=== PATIENT | female | born 1955 | race Caucasian/White ===

== ENCOUNTER → 2017-07-27 07:51 | Outpatient (CLI) | payer OTHER, SELFPAY ==
--- NOTE | 2017-07-27 07:53 | HPBI_ITS ---
MAMMOGRAPHY - BILATERAL SCREENING REASON FOR EXAM: Female, 62 years old. Routine annual screening examination. PERTINENT HISTORY: Grandmother with breast cancer. TECHNIQUE: Digital bilateral breast jeronimo (3D mammographic acquisition) in the CC and MLO projections. 2-D mediolateral oblique (MLO) and craniocaudad (CC) views of both breasts were obtained. CAD: Full Field Digital Mammography with Computer Added Detection was performed. COMPARISON: Comparison is made with prior study dated July 14, 2016. FINDINGS: Breast Composition: The breasts are heterogeneously dense, which may obscure small masses. There are no dominant masses or suspicious calcifications. No other significant abnormalities are identified. There has been no significant change since the prior study. HPBI/SCREENING MAMM (CAD), BILAT IMPRESSION: Stable bilateral screening mammogram. Yearly follow-up mammogram recommended. (A) ASSESSMENT CATEGORY: BIRADS Category 1: Negative. A letter regarding these results will be sent to the patient by the facility within 30 days. Approximately 10% of breast cancers are not detected by mammography. A normal mammogram should not delay biopsy of a clinically suspicious abnormality. [id number] Electronically Signed: Woody Davenport MD at 12:26 EST Tel [phone], Service support ,
== END ==
PROVIDERS: Family Provider Family Medicine; PCP Family Medicine; Visit Provider Family Medicine
DX: Z12.31 Encounter for screening mammogram for malignant neoplasm of breast (principal)
CPT/HCPCS: 77063; 77067

== ENCOUNTER → 2018-02-15 11:10 | Outpatient (CLI) | payer OTHER, SELFPAY ==
[2018-02-15 14:10] LABS: Absolute Lymphocyte Count 1.19 X10^3/ul (0.83-4.51); Absolute Neutrophil Count 3.7 X10^3/uL (2.0-7.7); Basophil# 0.02 X10^3/uL; Basophil% 0.4 % (0-1); Eosinophil# 0.17 X10^3/uL; Eosinophils% 3.1 % (0-5); Hematocrit 37.6 % (37-47); Hemoglobin 11.7 g/dl (12.0-15.0); Lymphocyte # 1.19 X10^3/ul (4.0); Lymphocyte % 21.8 % (19-41); Mean Corp Hgb Conc 31.1 g/gl (32-36); Mean Corpuscular Hgb 25.9 pg (27.0-32.0); Mean Corpuscular Volume 83.4 fL (81-99); Mean Platelet Vol. 9.9 fl (6.2-12.0); Monocyte# 0.42 X10^3/uL; Monocyte% 7.7 % (0-10); Neutrophil # 3.65 X10^3/uL (2.7-7.7); Neutrophil % 66.6 % (47-70); Platelet Count 276 K/mm3 (150-450); RBC Distribution Width CV 14.3 % (11.6-14.6); Red Blood Count 4.51 M/mm3 (4.2-5.4); White Blood Count 5.5 K/mm3 (4.4-11.0)
[2018-02-15 14:15] LABS: POSITIVE COUNT NO; POSITIVE DIFFERENTIAL NO; POSITIVE MORPHOLOGY NO
[2018-02-15 14:38] LABS: AST(SGOT) 22 U/L (15-37); Alanine Aminotransfer ALT/SGPT 24 U/L (13-56); Anion Gap 10 (5-15); BUN 19 mg/dL (7-18); Calcium,Total 9.1 mg/dL (8.5-10.1); Chloride 103 mmol/L (98-107); Cholesterol 152 mg/dL (200); Creatinine, Serum 0.86 mg/dL (0.55-1.02); EST Glomerular Filtration Rate 70 mL/min (>60); Est Glom Filt Rate - Afr Amer 85 mL/min (>60); Glucose 82 mg/dL (74-106); High Density Lipoprotein 51 mg/dL; Potassium 4.1 mmol/L (3.5-5.1); Sodium Level 140 mmol/L (136-145); Triglycerides 97 mg/dL; Very Low Density Lipoprotein 19 mg/dL (5-40)
== END ==
PROVIDERS: Family Provider Family Medicine; PCP Family Medicine; Visit Provider Family Medicine
DX: I10 Essential (primary) hypertension (principal); E78.5 Hyperlipidemia, unspecified; D50.0 Iron deficiency anemia secondary to blood loss (chronic)
CPT/HCPCS: 36415; 80048; 80061; 84450; 84460; 85025

== ENCOUNTER → 2018-08-23 14:15 | Outpatient (CLI) | payer OTHER, SELFPAY ==
[2018-05-03 14:40] VITALS: BMI 45.3
[2018-08-23 16:02] LABS: Anion Gap 10 (5-15); BUN 14 mg/dL (7-18); BUN/Creat Ratio 17.5 RATIO (10-20); Calcium,Total 9.2 mg/dL (8.5-10.1); Chloride 100 mmol/L (98-107); EST Glomerular Filtration Rate 77 mL/min (>60); Est Glom Filt Rate - Afr Amer 93 mL/min (>60); Glucose 77 mg/dL (74-106); Potassium 4.2 mmol/L (3.5-5.1); Sodium Level 138 mmol/L (136-145)
== END ==
PROVIDERS: Family Provider Family Medicine; PCP Family Medicine; Referring Provider Family Medicine; Visit Provider Family Medicine
DX: I10 Essential (primary) hypertension (principal)
CPT/HCPCS: 36415; 80048

== ENCOUNTER → 2018-08-25 08:28 | Outpatient (CLI) | payer OTHER, SELFPAY ==
[2018-05-03 14:40] VITALS: BMI 45.3
--- NOTE | 2018-08-25 08:31 | BI_ITS ---
MAMMOGRAPHY - BILATERAL SCREENING REASON FOR EXAM: Female, 63 years old. Routine annual screening examination. PERTINENT HISTORY: Grandmother with breast cancer. TECHNIQUE: Digital bilateral breast jeronimo (3D mammographic acquisition) in the CC and MLO projections. 2-D mediolateral oblique (MLO) and craniocaudad (CC) views of both breasts were obtained. CAD: Full Field Digital Mammography with Computer Added Detection was performed. COMPARISON: Comparison is made with prior study dated July 27, 2017 and July 14, 2016. FINDINGS: Breast Composition: The breasts are heterogeneously dense, which may obscure small masses. There are no dominant masses or suspicious calcifications. Stable benign-appearing bilateral axillary lymph nodes. No other significant abnormalities are identified. There has been no significant change since the prior study. BI/SCREENING MAMM (CAD), BILAT IMPRESSION: Stable bilateral screening mammogram. Yearly follow-up mammogram recommended. (A) ASSESSMENT CATEGORY: BIRADS Category 2: Benign. A letter regarding these results will be sent to the patient by the facility within 30 days. Approximately 10% of breast cancers are not detected by mammography. A normal mammogram should not delay biopsy of a clinically suspicious abnormality. [id number] Electronically Signed: Woody Davenport, at 14:45 EST , Service support ,
== END ==
PROVIDERS: Family Provider Family Medicine; PCP Family Medicine; Referring Provider Family Medicine; Visit Provider Family Medicine
DX: Z12.31 Encounter for screening mammogram for malignant neoplasm of breast (principal)
CPT/HCPCS: 77063; 77067

== ENCOUNTER → 2019-03-09 10:15 | Outpatient (CLI) | payer MEDICARE, OTHER, SELFPAY ==
[2018-05-03 14:40] VITALS: BMI 45.3
[2019-03-09 13:42] LABS: AST(SGOT) 19 U/L (15-37); Alanine Aminotransfer ALT/SGPT 23 U/L (13-56); Anion Gap 6 (5-15); BUN 17 mg/dL (7-18); BUN/Creat Ratio 18.9 RATIO (10-20); Calcium,Total 9.7 mg/dL (8.5-10.1); Chloride 102 mmol/L (98-107); Cholesterol 145 mg/dL (200); EST Glomerular Filtration Rate 67 mL/min (>60); Est Glom Filt Rate - Afr Amer 81 mL/min (>60); Glucose 89 mg/dL (74-106); High Density Lipoprotein 52 mg/dL; Potassium 4.1 mmol/L (3.5-5.1); Sodium Level 136 mmol/L (136-145); Triglycerides 101 mg/dL; Very Low Density Lipoprotein 20 mg/dL (5-40)
== END ==
PROVIDERS: Family Provider Family Medicine; PCP Family Medicine; Referring Provider Family Medicine; Visit Provider Family Medicine
DX: E78.5 Hyperlipidemia, unspecified (principal); I10 Essential (primary) hypertension
CPT/HCPCS: 36415; 80048; 80061; 84450; 84460

== ENCOUNTER → 2019-08-29 08:31 | Outpatient (CLI) | payer MEDICARE, OTHER, SELFPAY ==
[2019-05-23 13:07] VITALS: BMI 45.9
--- NOTE | 2019-08-29 08:35 | BI_ITS ---
MAMMOGRAPHY - BILATERAL SCREENING REASON FOR EXAM: Female, 64 years old. Routine annual screening examination. PERTINENT HISTORY: Grandmother with breast cancer. TECHNIQUE: Digital bilateral breast mathew (3D mammographic acquisition) in the CC and MLO projections. 2-D mediolateral oblique (MLO) and craniocaudad (CC) views of both breasts were obtained. CAD: Full Field Digital Mammography with Computer Added Detection was performed. COMPARISON: Comparison is made with prior study of August 25, 2018 and July 27, 2017. FINDINGS: Breast Composition: The breasts are heterogeneously dense, which may obscure small masses. There are no dominant masses or suspicious calcifications. Stable small bilateral benign-appearing axillary lymph nodes. No other significant abnormalities are identified. There has been no significant change since the prior study. BI/Bilat Brst Screen Mathew Add-On IMPRESSION: Stable bilateral screening mammogram. Yearly follow-up mammogram recommended. (A) ASSESSMENT CATEGORY: BIRADS Category 2: Benign. A letter regarding these results will be sent to the patient by the facility within 30 days. Approximately 10% of breast cancers are not detected by mammography. A normal mammogram should not delay biopsy of a clinically suspicious abnormality. [id number] Electronically Signed: Woody Davenport, at 12:48 EDT , Service support ,
== END ==
PROVIDERS: PCP Family Medicine; Referring Provider Family Medicine; Visit Provider Family Medicine
DX: Z12.31 Encounter for screening mammogram for malignant neoplasm of breast (principal); Z80.3 Family history of malignant neoplasm of breast
CPT/HCPCS: 77063; 77067

== ENCOUNTER → 2019-09-05 11:07 | Outpatient (CLI) | payer MEDICARE, OTHER, SELFPAY ==
[2019-05-23 13:07] VITALS: BMI 45.9
[2019-09-05 12:38] LABS: Anion Gap 6 (5-15); BUN 19 mg/dL (7-18); BUN/Creat Ratio 21.4 RATIO (10-20); Calcium,Total 9.5 mg/dL (8.5-10.1); Chloride 103 mmol/L (98-107); Cholesterol 163 mg/dL (200); Creatinine, Serum 0.89 mg/dL (0.55-1.02); EST Glomerular Filtration Rate 68 mL/min (>60); Est Glom Filt Rate - Afr Amer 82 mL/min (>60); Glucose 93 mg/dL (74-106); High Density Lipoprotein 50 mg/dL; Potassium 4.4 mmol/L (3.5-5.1); Sodium Level 138 mmol/L (136-145); Triglycerides 126 mg/dL; Very Low Density Lipoprotein 25 mg/dL (5-40)
[2019-09-05 14:34] LABS: Vitamin D,25 Hydroxy 36.5 ng/mL
== END ==
PROVIDERS: PCP Family Medicine; Referring Provider Family Medicine; Visit Provider Family Medicine
DX: I10 Essential (primary) hypertension (principal); E55.9 Vitamin D deficiency, unspecified
CPT/HCPCS: 36415; 80048; 80061; 82306

== ENCOUNTER → 2020-06-23 12:40 | Outpatient (CLI) | payer MEDICARE, OTHER, SELFPAY ==
[2020-05-28 14:55] VITALS: BMI 45.2
[2020-06-23 15:53] LABS: AST(SGOT) 19 U/L (15-37); Alanine Aminotransfer ALT/SGPT 30 U/L (13-56); Albumin, Serum 3.8 g/dL (3.2-5.0); Alkaline Phosphatase 132 U/L (45-117); Anion Gap 7 (5-15); BUN 23 mg/dL (7-18); BUN/Creat Ratio 21.9 RATIO (10-20); Bilirubin, Direct 0.19 mg/dL (0.00-0.30); Calcium,Total 9.4 mg/dL (8.5-10.1); Chloride 106 mmol/L (98-107); Creatinine, Serum 1.05 mg/dL (0.55-1.02); EST Glomerular Filtration Rate 56 mL/min (>60); Est Glom Filt Rate - Afr Amer 67 mL/min (>60); Globulin 4.1 g/dL (2.2-4.2); Glucose 117 mg/dL (74-106); Potassium 3.8 mmol/L (3.5-5.1); Protein, Total 7.9 g/dL (6.4-8.2); Sodium Level 141 mmol/L (136-145)
[2020-06-25 07:46] LABS: SARS-COV-2 TOTAL ABS Nonreactive (Nonreactive)
== END ==
PROVIDERS: PCP Family Medicine; Referring Provider Family Medicine; Visit Provider Family Medicine
DX: Z01.83 Encounter for blood typing (principal); I10 Essential (primary) hypertension
CPT/HCPCS: 36415; 80048; 80076; 86769; 86900; 86901

== ENCOUNTER → 2020-09-17 12:00 | Outpatient (CLI) | payer MEDICARE, OTHER, SELFPAY ==
[2020-05-28 14:55] VITALS: BMI 45.2
[2020-09-17 16:39] LABS: Anion Gap 6 (5-15); BUN 18 mg/dL (7-18); BUN/Creat Ratio 20.6 RATIO (10-20); Chloride 103 mmol/L (98-107); Cholesterol 167 mg/dL (200); Creatinine, Serum 0.87 mg/dL (0.55-1.02); EST Glomerular Filtration Rate 69 mL/min (>60); Est Glom Filt Rate - Afr Amer 83 mL/min (>60); Glucose 78 mg/dL (74-106); High Density Lipoprotein 54 mg/dL; Potassium 4.2 mmol/L (3.5-5.1); Sodium Level 137 mmol/L (136-145); Triglycerides 122 mg/dL; Very Low Density Lipoprotein 24 mg/dL (5-40)
== END ==
PROVIDERS: PCP Family Medicine; Referring Provider Family Medicine; Visit Provider Family Medicine
DX: E78.5 Hyperlipidemia, unspecified (principal); I10 Essential (primary) hypertension
CPT/HCPCS: 36415; 80048; 80061

== ENCOUNTER → 2020-09-24 09:45 | Outpatient (CLI) | payer MEDICARE, OTHER, SELFPAY ==
[2020-05-28 14:55] VITALS: BMI 45.2
--- NOTE | 2020-09-24 09:53 | BD_ITS ---
STUDY: DUAL ENERGY X-RAY ABSORPTIOMETRY / DXA REASON FOR EXAM: Female, 65 years old. V76.12ScreeningBONE DENSITY REASON FOR EXAM TECHNIQUE: Bone Mineral Density (BMD) measurements of lumbar spine and bilateral hips were obtained. COMPARISON: Comparison is made with prior examination dated 07/14/2016. FINDINGS: Lumbar Spine (L1-L4): g/cm2 (1.169) / T-score (0.0) / Z-score (1.6) Findings are suggestive of normal bone density with a low fracture risk. Left Femur Total: g/cm2 (1.054) / T-score (0.4) / Z-score (1.6) Left Femoral Neck: g/cm2 (1.002) / T-score (-0.3) / Z-score (1.3) Right Femur Total: g/cm2 (1.018) / T-score (0.1) / Z-score (1.3) Right Femoral Neck: g/cm2 (0.962) / T-score (-0.5) / Z-score (1.0) The T-Scores on the most recent prior examination were: Lumbar Spine (L1-L4): There has been worsening of bone density since the previous examination. Left Femur Total: which represents a worsening of 5.6%. Right Femur Total: which represents a worsening of 3.2%. BD/Dexa Bone Density Study IMPRESSION: The patient is considered normal as outlined below according to World Brandon Organization (WHO) criteria with a low fracture risk. There has been worsening of bone density since the previous examination. Reference Information: The T-score is the number of standard deviations above or below the standard which is normal for young adults at their peak bone mineral density. The World Health Organization (WHO) interprets the T-scores as follows: Above -1 Normal bone density Between -1 and -2.5 Osteopenia Equal to / or below -2.5 Osteoporosis As a practical clinical guideline, osteopenia may be graded as follows: Mild -1 through -1.5 Moderate -1.6 through -2.0 Severe -2.1 through -2.4 The Z-score is the number of standard deviations above or below age-matched controls. A Z-score of less than -1.5 would be considered abnormal. References: 1. NIH Osteoporosis and Related Bone Diseases www osteo.org 2. International Society for Clinical Densitometry www iscd.org 3. National Osteoporosis Foundation www nof.org Electronically Signed: Woody Davenport MD at 9:58 EDT , Service support ,
--- NOTE | 2020-09-24 10:15 | RAD_ITS ---
STUDY: X-RAY - LUMBOSACRAL SPINE REASON FOR EXAM: Female, 65 years old. pain TECHNIQUE: 8 view(s) of the lumbosacral spine were obtained including flexion and extension. COMPARISON: None FINDINGS: Normal lumbar lordosis. There is no substantial scoliosis. There are 4 nonrib bearing vertebral bodies with a transitional L5. There is a moderate superior endplate compression deformity of L1 which looks to be an old compression deformity. Normal vertebral body height at other levels. There is generalized moderate degenerative disc narrowing and spondylitic endplate changes which are greatest at L2-3. Rudimentary disc at L5/transitional S1. There is no change in alignment on flexion and extension. Facet arthrosis appears to be most prominent at L3-4 and L4-5. Normal visualized soft tissue structures. RAD/L/S Spine w Bend Min 6 Vw IMPRESSION: Normal alignment of the lumbar spine which is stable on flexion and extension. Old moderate superior endplate compression deformity of L1 noting for rib bearing lumbar levels with a transitional L5 with a rudimentary disc at L5-S1. Generalized moderate degenerative disc narrowing and spondylitic endplate changes most advanced at L2-3. Electronically Signed: Opal Arenas MD at 23:16 EDT , Service support ,
== END ==
PROVIDERS: PCP Family Medicine; Referring Provider Family Medicine; Visit Provider Family Medicine
DX: M54.5 Low back pain (principal); N95.9 Unspecified menopausal and perimenopausal disorder
CPT/HCPCS: 72114; 77080

== ENCOUNTER → 2020-10-09 06:27 | Outpatient (CLI) | payer MEDICARE, OTHER, SELFPAY ==
[2020-09-30 09:52] VITALS: BMI 45.6
--- NOTE | 2020-10-09 06:29 | MRI_ITS ---
STUDY: MRI LUMBAR SPINE WITHOUT CONTRAST REASON FOR EXAM: Female, 65 years old. Pain AFTER FALL 06/13/20 TECHNIQUE: Standardized fat and water weighted pulse sequences were obtained in the sagittal and axial planes. COMPARISON: Lumbar spine radiographs 09/24/2020. FINDINGS: T10-T11: (Sagittal only). Minimal MODIC type II degenerative vertebral marrow fatty change underneath the anterior aspect of the T11 superior endplate. Normal T10 inferior endplate. Anterior marginal spurs. Tiny posterior bulging disc. Normal central canal and bilateral intervertebral neural foramina. T11-T12: (Sagittal only). Prominent right anterior marginal spurs. Minimal MODIC type II degenerative vertebral marrow fatty change underneath the anterior aspect of the T12 the superior endplate. Normal T11 inferior endplate. Moderate disc space height narrowing. Small posterior bulging disc. Normal central canal and bilateral intervertebral neural foramina. T12-L1: (Sagittal only). Normal endplates. Normal disc height and hydration. Small posterior bulging disc. Normal central canal and bilateral intervertebral neural foramina. Normal lumbar lordosis. There is no substantial scoliosis. Normal conus medullaris that terminates at the L1-L2 disc level. L1-2: Normal L1 inferior endplate. Moderate compression fracture of the upper L2 vertebral body with moderate amount of bone edema. The bone edema does not extend to either L2 pedicle. Minimal retropulsion of the posterior superior corner of the L2 vertebral body causing mild ventral extradural defect. Normal central canal and bilateral lateral recesses. Mild bilateral degenerative facet arthropathy. Normal bilateral intervertebral neural foramina. L2-3: Normal endplates. Minimal disc space height narrowing but normal disc hydration. Minimal degenerative anterolisthesis of L2 on L3. Mild central canal stenosis with an AP canal diameter of 9 mm. Prominent dorsal epidural lipomatosis. Mild to moderate bilateral degenerative facet arthropathy. Normal bilateral intervertebral neural foramina. Small benign focal fatty infiltration in the right upper central L3 vertebral body is confirmed on sagittal STIR sequence. L3-4: Anterior marginal spurs. Schmorl''s node in the posterior L3 inferior endplate. Right-sided L4 benign vertebral body hemangioma. Mild to moderate disc space height narrowing with prominent posterior annular bulging disc. Mild central canal stenosis with an AP canal diameter of 8.7 mm. Normal bilateral lateral recesses. Mild asymmetric degenerative facet arthropathy, left greater than right. Normal bilateral intervertebral neural foramina. L4-5: Normal endplates. Mild disc space height narrowing. Small posterior peripheral annular bulging disc. Moderate central canal stenosis with an AP canal diameter of 6.8 mm. Normal bilateral lateral recesses. Asymmetric posterior ligamenta flava hypertrophy. Moderate right degenerative facet hypertrophy and mild to moderate left degenerative facet hypertrophy. Normal bilateral intervertebral neural foramina. L5-S1: Normal endplates. Mild disc space height narrowing. Small posterior annular bulging disc. Normal central canal and bilateral lateral recesses. Moderate bilateral degenerative facet hypertrophy. Normal bilateral intervertebral neural foramina. Normal barely included sacral ala. Normal visualized paraspinous soft tissue structures. MRI/Spine Lumbar (Routine) IMPRESSION: 1. Recent compression fracture of the upper L2 vertebral body with moderate amount of bone edema. This is feasible for kyphoplasty if patient has debilitating back pain referrable to this site. 2. No MRI evidence of lumbar extruded disc fragment. 3. Moderate central canal stenosis at L4-L5 disc space level with an AP canal diameter of 6.8 mm and small posterior annular bulging disc. 4. Mild central canal stenosis at L3-L4 disc space level with an AP canal diameter of 8.7 mm. 5. Right L4 benign vertebral body hemangioma. 6. Mild central canal stenosis at L2-L3 disc space level with minimal degenerative anterolisthesis of L2 on L3. The AP canal diameter is 9 mm. Electronically Signed: Davie Cullen MD at 15:32 EDT , Service support ,
== END ==
PROVIDERS: PCP Family Medicine; Referring Provider Orthopaedic Surgery; Visit Provider Orthopaedic Surgery
DX: M48.56XA Collapsed vertebra, not elsewhere classified, lumbar region, initial encounter for fracture (principal)
CPT/HCPCS: 72148

== ENCOUNTER → 2020-12-17 12:17 | Outpatient (CLI) | payer MEDICARE, OTHER, SELFPAY ==
[2020-05-28 14:55] VITALS: BMI 45.2
[2020-10-28 08:17] VITALS: BMI 45.6
--- NOTE | 2020-12-17 12:20 | BI_ITS ---
MAMMOGRAPHY - BILATERAL SCREENING REASON FOR EXAM: Female, 65 years old. Routine annual screening examination. PERTINENT HISTORY: Grandmother with breast cancer. TECHNIQUE: Digital bilateral breast jeronimo (3D mammographic acquisition) in the CC and MLO projections. 2-D mediolateral oblique (MLO) and craniocaudad (CC) views of both breasts were obtained. CAD: Full Field Digital Mammography with Computer Added Detection was performed. COMPARISON: Comparison is made with prior study of 08/29/2019 and 08/25/2017. FINDINGS: Breast Composition: The breasts are heterogeneously dense, which may obscure small masses. There are no dominant masses or suspicious calcifications. Stable benign-appearing bilateral axillary lymph nodes. No other significant abnormalities are identified. There has been no significant change since the prior study. BI/SCREENING MAMM (CAD), BILAT IMPRESSION: Stable bilateral screening mammogram. Yearly follow-up mammogram recommended. (A) ASSESSMENT CATEGORY: BIRADS Category 2: Benign. A letter regarding these results will be sent to the patient by the facility within 30 days. Approximately 10% of breast cancers are not detected by mammography. A normal mammogram should not delay biopsy of a clinically suspicious abnormality. [id number] Electronically Signed: Woody Davenport MD at 13:50 EDT , Service support ,
== END ==
PROVIDERS: PCP Family Medicine; Referring Provider Family Medicine; Visit Provider Family Medicine
DX: Z12.31 Encounter for screening mammogram for malignant neoplasm of breast (principal)
CPT/HCPCS: 77067

== ENCOUNTER 2020-12-31 10:00 | Outpatient (RCR) | payer MEDICARE, OTHER, SELFPAY ==
[2020-05-28 14:55] VITALS: BMI 45.2
--- NOTE | 2020-09-26 08:02 | HP.PTEVAL_ITS ---
Patient's Visit Information DAVE SANTIAGO is a 65 year old F referred to Physical Therapy by Dr. Jaylyn Arevalo MD with a diagnosis of LBP. Date of Evaluation: 09/26/20 Physical Therapist: KATLYN Block - Visit Plan Frequency: 2x /Week Duration: 6 Weeks Plan: 2X/ week for 6 weeks for trunk ROM, Core stability, postural exercises, LE strength, with HEP and modalities as needed - Subjective Jun 13 she fell at home putting her slippers on. She bent over to bring her leg up and B knees have been relpaced and her L knee bent back and she fell backwards. She fell on carpet. She was hurting at that point but able to get up. Her back and pelvis continued to get more and more sore. As the pain was increasing her brother told her to do Tylenol/Advil routnine. Saw PCP and said she was fine and that it would take her awhile to get better. She saw her chiropractor from a 03/29 to a 06/29. Chiro was doing cold laser and electrotherapy. It switched and what was helping was now giving her pain for days afterwards. SHe just went last Tuesday and demanded xrays and bone density. She had a L2 compression fracture on bone density. She sees Dr Bruce on This Tuesday. Pt has gotten better and she is doing her ADL's but always with some discomfort. Standing increases her pain. Sitting causes her no pain. Cleaning her house she has to take a break. She has no N&T. She is sleeping ok but toward morning she starts to be a little achy. She had a lot of pain initially turning over but that is no longer. She had so much pain that she sat from to Jul due to too much pain. She is more SOB with walking and the mask does not help. - Pain LBP Pain Intensity (Out of 10): 0 Pain Intensity Range: 1 Comment: walking this am - Objective Gait: Walks with no antalgic gait. Trunk AROM: Flexion 100%, EXt 50%, SB B 75%. LE MMT: B hip flex 3+/5, B knee ext 4/5, B knee flex 4/5, Hip abd 3+/5, increase pain and decrease ROM with bridging. SLR: - B. SLUMP TEST: -B. Patella DTR's 0/3. Standing on heel and toes: Pt is able to do so without pain... some LOB - Goals Goal 1:: I HEP Goal Time Frame: 4-6 Weeks Goal 2:: Decrease pain with ADL's to 1/10 with housework Goal Time Frame: 4-6 Weeks Goal 3:: Increase trunk Extension ROM to 100% with no pain Goal Time Frame: 4-6 Weeks Goal 4:: Increase LE strength by 1/2 muscle grade (at time of eval: LE MMT: B hip flex 3+/5, B knee ext 4/5, B knee flex 4/5, Hip abd 3+/5, increase pain and decrease ROM with bridging). Goal Time Frame: 4-6 Weeks Goal 5:: sit with upright posture during treatment sessions Goal Time Frame: 4-6 Weeks - Rehabilitation Potential Rehabilitation Potential: Good - Anticipated Interventions Patient/Client Instruction: Educate patient on: Condition, Plan of Care For the Purpose of:: To decrease pain, To increase ROM, To improve nutrient delivery to tissue, To improve muscle performance and motor function, To increase tolerance to activity/condition/position, To decrease level of supervision to perform tasks, To improve health of tissue, To decrease soft tissue restriction, To increase flexibility/ROM Therapeutic Exercise to Include: Strength training, Body mechanics, Postural training, Flexibilty training, Gait and locomotor training, Active ROM, Dynamic Lumbar Stabilization, Scapular Strength/Stabilization For the Purpose of:: To decrease pain, To increase ROM, To improve nutrient delivery to tissue, To improve muscle performance and motor function, To improve ability to perform ADL's, To increase tolerance to activity/condition/position, To improve performance and independence with ADL's, To decrease level of supervision to perform tasks, To improve ability of physical actions for home/community/work/leisure, To improve health of tissue, To decrease soft tissue restriction, To increase flexibility/ROM Manual Therapy Techniques to Include: Mobilization, Soft tissue mobilization For the Purpose of:: To decrease pain, To decrease swelling/inflammation, To increase ROM, To improve muscle performance and motor function, To improve ability to perform ADL's, To increase tolerance to activity/condition/position, To improve performance and independence with ADL's, To improve ability of physical actions for home/community/work/leisure, To improve gait and locomotor functions, To improve health of tissue, To decrease soft tissue restriction, To increase flexibility/ROM IF ES: Yes Cryotherapy (ice pack, ice massage): Yes Thermo therapy (hot pack): Yes Ultrasound (thermal/non thermal): Yes For the Purpose of:: To decrease pain, To increase ROM, To improve nutrient delivery to tissue, To improve muscle performance and motor function, To decrease level of supervision to perform tasks, To improve gait and locomotor functions, To improve health of tissue, To decrease soft tissue restriction, To increase flexibility/ROM Thank you for the opportunity to evaluate your patient. For Medicare and Medicare HMO plans, please review the plan of care and approve it. It will need to be FAXED BACK to us at [phone] for Medicare purposes. For Medicare only, by signing this I certify the plan of care. Please let me know if there are questions or concerns regarding this plan of care. Physician Signature: __Date:
[2020-09-30 09:52] VITALS: BMI 45.6
--- NOTE | 2020-10-28 09:59 | HP.PTREVAL ---
Dr. Jaylyn Arevalo MD, It has been my pleasure to treat DAVE SANTIAGO over the last 10 visits for LBP. Please see the progress note below for an update on the physical therapy plan of care! Subjective: AT is beneficial and def has helped with her endurance and strength. Now her pain is only associated with certain activities like housework and cooking and her endurance is better with those. Just saw the Dr and it is an L1 fracture and she still has edema.... (10 min of activitiy bothers her and she sits and rests and can go back to that).. Dr feels that her core is still weak but her alignment looks good. Pt wants to try land for a little bit and see. Her back pain varies depending on what she is doing. Objective/Function: Pt has overall weak core and needs to learn how to AB brace in supine and progress to sitting and standing to be able to complete ADL's. trunk AROM: flexion 100%, ext 75%, SB B 25%. LE MMT: B hip flex 3+/5, B knee ext 4/5, B knee flex 4/5, Hip abd 4-/5 B. Pt struggled with lying supine with knees bent but felt better with a PT. She struggles with getting ab brace and PT Plan Plan: Pt has overall weak core and needs to learn how to AB brace in supine and progress to sitting and standing to be able to complete ADL's. 2X/ week for 3 weeks for progressive nuetral spine Core stability, postural exercises, LE strength, with HEP. Goals Goal 1:: I HEP Goal Time Frame: 4-6 Weeks Goal Progress: Goal Met Goal 2:: Decrease pain with ADL's to 1/10 with housework (5/10 intensified with activity) Goal Time Frame: 4-6 Weeks Goal Progress: Progressing Goal 3:: Increase trunk Extension ROM to 100% with no pain Goal Time Frame: 4-6 Weeks Goal 4:: Increase LE strength by 1/2 muscle grade (at time of eval: LE MMT: B hip flex 3+/5, B knee ext 4/5, B knee flex 4/5, Hip abd 3+/5, increase pain and decrease ROM with bridging). Goal Time Frame: 4-6 Weeks Goal 5:: sit with upright posture during treatment sessions Goal Time Frame: 4-6 Weeks Goal Progress: Progressing Anticipated Interventions Patient/Client Instruction: Educate patient on: Condition, Plan of Care For the Purpose of:: To decrease pain, To increase ROM, To improve nutrient delivery to tissue, To improve muscle performance and motor function, To increase tolerance to activity/condition/position, To decrease level of supervision to perform tasks, To improve health of tissue, To decrease soft tissue restriction, To increase flexibility/ROM Therapeutic Exercise to Include: Strength training, Body mechanics, Postural training, Flexibilty training, Gait and locomotor training, Active ROM, Dynamic Lumbar Stabilization, Scapular Strength/Stabilization For the Purpose of:: To decrease pain, To increase ROM, To improve nutrient delivery to tissue, To improve muscle performance and motor function, To improve ability to perform ADL's, To increase tolerance to activity/condition/position, To improve performance and independence with ADL's, To decrease level of supervision to perform tasks, To improve ability of physical actions for home/community/work/leisure, To improve health of tissue, To decrease soft tissue restriction, To increase flexibility/ROM Manual Therapy Techniques to Include: Mobilization, Soft tissue mobilization For the Purpose of:: To decrease pain, To decrease swelling/inflammation, To increase ROM, To improve muscle performance and motor function, To improve ability to perform ADL's, To increase tolerance to activity/condition/position, To improve performance and independence with ADL's, To improve ability of physical actions for home/community/work/leisure, To improve gait and locomotor functions, To improve health of tissue, To decrease soft tissue restriction, To increase flexibility/ROM IF ES: Yes Cryotherapy (ice pack, ice massage): Yes Thermo therapy (hot pack): Yes Ultrasound (thermal/non thermal): Yes For the Purpose of:: To decrease pain, To increase ROM, To improve nutrient delivery to tissue, To improve muscle performance and motor function, To decrease level of supervision to perform tasks, To improve gait and locomotor functions, To improve health of tissue, To decrease soft tissue restriction, To increase flexibility/ROM Please do not hesitate to contact me at [phone] by phone or if you have questions or concerns regarding this new plan of care! Sincerely, KATLYN Block
--- NOTE | 2020-11-21 09:36 | HP.PTREVAL ---
Dr. Jaylyn Arevalo MD, It has been my pleasure to treat DAVE SANTIAGO over the last 17 visits for LBP. Please see the progress note below for an update on the physical therapy plan of care! Subjective: Pt reports that she had 2 bad days but the weather was not good either. She reports that exercise helps at least temporarily. Hosuework still causes her pain and she still has to rest a lot. Objective/Function: Pt was still fatigued today with mid rows and lat pull downs..... Verbal cues still needed for upright standing posture. LE MMT: B hip flex 4-/5, B knee ext 4/5, B knee flex 4/5, Hip abd 4-/5, increase pain and decrease ROM with bridging). Plan Plan: Continue 2X/ week for 3 weeks for progressive nuetral spine Core stability, postural exercises, LE strength, with HEP. ADD some LE strength Goals Goal 1:: I HEP Goal Time Frame: 4-6 Weeks Goal Progress: Goal Met Goal 2:: Decrease pain with ADL's to 1/10 with housework (5/10 intensified with activity) Goal Time Frame: 4-6 Weeks Goal Progress: Progressing Goal 3:: Increase trunk Extension ROM to 100% with no pain Goal Time Frame: 4-6 Weeks Goal 4:: Increase LE strength by 1/2 muscle grade (at time of eval: LE MMT: B hip flex 3+/5, B knee ext 4/5, B knee flex 4/5, Hip abd 3+/5, increase pain and decrease ROM with bridging). Goal Time Frame: 4-6 Weeks Goal 5:: sit with upright posture during treatment sessions Goal Time Frame: 4-6 Weeks Goal Progress: Progressing Goal 6:: Pt wants to be able to walk the dog without pain Goal Time Frame: 4-6 Weeks Anticipated Interventions Patient/Client Instruction: Educate patient on: Condition, Plan of Care For the Purpose of:: To decrease pain, To increase ROM, To improve nutrient delivery to tissue, To improve muscle performance and motor function, To increase tolerance to activity/condition/position, To decrease level of supervision to perform tasks, To improve health of tissue, To decrease soft tissue restriction, To increase flexibility/ROM Therapeutic Exercise to Include: Strength training, Body mechanics, Postural training, Flexibilty training, Gait and locomotor training, Active ROM, Dynamic Lumbar Stabilization, Scapular Strength/Stabilization For the Purpose of:: To decrease pain, To increase ROM, To improve nutrient delivery to tissue, To improve muscle performance and motor function, To improve ability to perform ADL's, To increase tolerance to activity/condition/position, To improve performance and independence with ADL's, To decrease level of supervision to perform tasks, To improve ability of physical actions for home/community/work/leisure, To improve health of tissue, To decrease soft tissue restriction, To increase flexibility/ROM Manual Therapy Techniques to Include: Mobilization, Soft tissue mobilization For the Purpose of:: To decrease pain, To decrease swelling/inflammation, To increase ROM, To improve muscle performance and motor function, To improve ability to perform ADL's, To increase tolerance to activity/condition/position, To improve performance and independence with ADL's, To improve ability of physical actions for home/community/work/leisure, To improve gait and locomotor functions, To improve health of tissue, To decrease soft tissue restriction, To increase flexibility/ROM IF ES: Yes Cryotherapy (ice pack, ice massage): Yes Thermo therapy (hot pack): Yes Ultrasound (thermal/non thermal): Yes For the Purpose of:: To decrease pain, To increase ROM, To improve nutrient delivery to tissue, To improve muscle performance and motor function, To decrease level of supervision to perform tasks, To improve gait and locomotor functions, To improve health of tissue, To decrease soft tissue restriction, To increase flexibility/ROM Please do not hesitate to contact me at [phone] by phone or if you have questions or concerns regarding this new plan of care! Sincerely, KATLYN Block
--- NOTE | 2020-12-09 08:13 | HP.PTREVAL_ITS ---
Dr. Jaylyn Arevalo MD, It has been my pleasure to treat DAVE SANTIAGO over the last 23 visits for LBP. Please see the progress note below for an update on the physical therapy plan of care! Subjective: Pt is doing better. She has noticed improvement endurance baez. Standing talking to people she can do it for longer periods of time. Doing dishes it takes longer before it starts and not major like it was. The weather still makes things worse. Most of the time she is doing well but weather makes it worse. She has not taken the dog for a walk... weather has been bad... it was bad pain in begining and has not done so. She is fearful of falling with the weakness on the L LE. Pt has no pain when making her bed anymore or change the sheets and does not have to take a break. Objective/Function: Posture: standing... likes to lean FW at the waist... needs tactile and verbal cues to get into upright posture. LE MMT: B hip flex 4-/5, B knee ext 4/5, R knee flex 4/5, L knee flex 4-/5, Hip abd 3+/5, increase pain and decrease ROM with bridging). Stairs: up and down recip with 2 hand rails with increased weakness on the L side and descending stairs with ER of the L LE. Trunk AROM: Ext 50% Plan Plan: Continue 2X/ week for 3 weeks for progressive neutral spine Core stab ility, postural exercises in standing, LE strength (especially on the L with stair activities (eccentric control on the L), with HEP. Pt will try to start walking with her dog. Goals Goal 1:: I HEP Goal Time Frame: 4-6 Weeks Goal Progress: Goal Met Goal 2:: Decrease pain with ADL's to less than 1/10 with housework (5/10 intensified with activity) Goal Time Frame: 4-6 Weeks Goal Progress: Progressing Goal 3:: Increase trunk Extension ROM to 100% with no pain Goal Time Frame: 4-6 Weeks Goal 4:: Increase LE strength by 1/2 muscle grade (at time of eval: LE MMT: B hip flex 3+/5, B knee ext 4/5, B knee flex 4/5, Hip abd 3+/5, increase pain and decrease ROM with bridging). Goal Time Frame: 4-6 Weeks Goal Progress: Progressing Goal 5:: sit with upright posture during treatment sessions Goal Time Frame: 4-6 Weeks Goal Progress: Progressing Goal 6:: Pt wants to be able to walk the dog without pain Goal Time Frame: 4-6 Weeks Anticipated Interventions Patient/Client Instruction: Educate patient on: Condition, Plan of Care For the Purpose of:: To decrease pain, To increase ROM, To improve nutrient delivery to tissue, To improve muscle performance and motor function, To increase tolerance to activity/condition/position, To decrease level of supervision to perform tasks, To improve health of tissue, To decrease soft tissue restriction, To increase flexibility/ROM Therapeutic Exercise to Include: Strength training, Body mechanics, Postural training, Flexibilty training, Gait and locomotor training, Active ROM, Dynamic Lumbar Stabilization, Scapular Strength/Stabilization For the Purpose of:: To decrease pain, To increase ROM, To improve nutrient delivery to tissue, To improve muscle performance and motor function, To improve ability to perform ADL's, To increase tolerance to activity/condition/position, To improve performance and independence with ADL's, To decrease level of supervision to perform tasks, To improve ability of physical actions for home/community/work/leisure, To improve health of tissue, To decrease soft tissue restriction, To increase flexibility/ROM Manual Therapy Techniques to Include: Mobilization, Soft tissue mobilization For the Purpose of:: To decrease pain, To decrease swelling/inflammation, To increase ROM, To improve muscle performance and motor function, To improve ability to perform ADL's, To increase tolerance to activity/condition/position, To improve performance and independence with ADL's, To improve ability of physical actions for home/community/work/leisure, To improve gait and locomotor functions, To improve health of tissue, To decrease soft tissue restriction, To increase flexibility/ROM IF ES: Yes Cryotherapy (ice pack, ice massage): Yes Thermo therapy (hot pack): Yes Ultrasound (thermal/non thermal): Yes For the Purpose of:: To decrease pain, To increase ROM, To improve nutrient delivery to tissue, To improve muscle performance and motor function, To decrease level of supervision to perform tasks, To improve gait and locomotor functions, To improve health of tissue, To decrease soft tissue restriction, To increase flexibility/ROM Please do not hesitate to contact me at [phone] by phone or if you have questions or concerns regarding this new plan of care! Sincerely, Hayley Conteh, MPT
--- NOTE | 2020-12-31 10:56 | HP.PTDCSUM ---
It has been my pleasure to treat DAVE SANTIAGO referred by Dr. Jaylyn Arevalo MD, with the diagnosis of LBP for a total of 27 visit(s). Discharge Date: 12/31/20 Please see the following information for a summary of their discharge status. Subjective: Pt reports that she is not where she wants to be but she is ok. She did not get a lot of walking due to humidity. She was able to walk around the block again and towards the end she was a little uncomfortable. She has tried massage therapy. She is just annoyed cause she wants to be where she wants to be. LBP Pain Intensity (Out of 10): 0 upper back pain Pain Intensity (Out of 10): 0 % Improvement: 60 Objective/Function: LE MMT: R hip abd 4-/5 and L 4/5, B hip flex 4-/5, B knee flex and ext 4/5. Trunk ext 25%. pt can walk the dog with 1/10 pain. Pt has blue band for mid rows Goal 1:: I HEP Goal Progress: Goal Met Goal 2:: Decrease pain with ADL's to less than 1/10 with housework (5/10 intensified with activity) Goal Progress: Goal Met Goal 3:: Increase trunk Extension ROM to 100% with no pain Goal Progress: Progressing Goal 4:: Increase LE strength by 1/2 muscle grade (at time of eval: LE MMT: B hip flex 3+/5, B knee ext 4/5, B knee flex 4/5, Hip abd 3+/5, increase pain and decrease ROM with bridging). Goal Progress: Goal Met Goal 5:: sit with upright posture during treatment sessions Goal Progress: Progressing Goal 6:: Pt wants to be able to walk the dog without pain Goal Progress: Progressing Plan: Continue X 1 visit to see how pt does with HEP on her own. Discharge Comments: DC PT to HEP If there are questions or concerns regarding this patient's physical therapy, please feel free to call me at [phone]. Thank you for the referral of this patient. Sincerely, Hayley Conteh, MPT
== END 2020-12-31 19:00 | disposition home or self-care (01) ==
LOC: PT 10:00
PROVIDERS: PCP Family Medicine; Referring Provider Family Medicine; Visit Provider Family Medicine
DX: M54.5 Low back pain (principal)
CPT/HCPCS: 97110; 97113; 97161; 97530

== ENCOUNTER → 2021-02-28 08:20 | Outpatient (CLI) | payer MEDICARE, OTHER, SELFPAY ==
[2021-02-28 08:52] LABS: Absolute Lymphocyte Count 1.29 X10^3/uL (0.83-4.51); Basophil# 0.05 X10^3/uL; Basophil% 0.7 % (0-1); Eosinophil# 0.21 X10^3/uL; Hematocrit 39.9 % (37-47); Lymphocyte # 1.29 X10^3/ul (0.83-4.51); Lymphocyte % 18.4 % (19-41); Mean Corp Hgb Conc 30.1 g/dL (32-36); Mean Corpuscular Hgb 26.5 pg (27.0-32.0); Mean Corpuscular Volume 88.3 fL (81-99); Mean Platelet Vol. 9.4 fl (6.2-12.0); Monocyte# 0.39 X10^3/uL; Monocyte% 5.6 % (0-10); NRBC Flagged by Analyzer 0 % (0-5); Neutrophil # 5.03 X10^3/uL (2.7-7.7); Neutrophil % 71.7 % (47-70); Platelet Count 296 K/mm3 (150-450); RBC Distribution Width CV 14.1 % (11.6-14.6); RBC Distribution Width SD 45.4 fl (35.1-43.9); Red Blood Count 4.52 M/mm3 (4.2-5.4)
[2021-02-28 09:25] LABS: ALB/GLOB Ratio 0.7 RATIO (0.9-2.4); AST(SGOT) 19 U/L (15-37); Alanine Aminotransfer ALT/SGPT 25 U/L (13-56); Albumin, Serum 3.3 g/dL (3.2-5.0); Alkaline Phosphatase 122 U/L (45-117); Anion Gap 4 (5-15); BUN 19 mg/dL (7-18); BUN/Creat Ratio 22.2 RATIO (10-20); Calcium,Total 9.1 mg/dL (8.5-10.1); Chloride 101 mmol/L (98-107); Cholesterol 175 mg/dL (200); Creatinine, Serum 0.86 mg/dL (0.55-1.02); EST Glomerular Filtration Rate 70 mL/min (>60); Est Glom Filt Rate - Afr Amer 85 mL/min (>60); Globulin 4.5 g/dL (2.2-4.2); Glucose 110 mg/dL (74-106); High Density Lipoprotein 58 mg/dL; Potassium 4.3 mmol/L (3.5-5.1); Protein, Total 7.8 g/dL (6.4-8.2); Sodium Level 136 mmol/L (136-145); Triglycerides 100 mg/dL; Very Low Density Lipoprotein 20 mg/dL (5-40)
== END ==
PROVIDERS: PCP Family Medicine; Referring Provider Family Medicine; Visit Provider Family Medicine
DX: I10 Essential (primary) hypertension (principal); E78.5 Hyperlipidemia, unspecified
CPT/HCPCS: 36415; 80053; 80061; 85025

== ENCOUNTER → 2021-04-10 09:09 | Outpatient (CLI) | payer MEDICARE, OTHER, SELFPAY ==
[2021-04-10 10:52] LABS: Hemoglobin A1c 5.8 % (3.8-5.6)
[2021-04-14 15:08] LABS: PROEL- A/G Ratio 0.9 (0.7-1.7); PROEL- Albumin 3.2 g/dL (2.9-4.4); PROEL- Alpha-1 Globulin 0.3 g/dL (0.0-0.4); PROEL- Beta Globulin 1.1 g/dL (0.7-1.3); PROEL- Gamma Globulin 1.1 g/dL (0.4-1.8); PROEL- Globulin, Total 3.5 g/dL (2.2-3.9); PROEL- TOTAL PROTEIN 6.7 g/dL (6.0-8.5); PROELU- Albumin, Urine 29.6 % (.); PROELU- Alpha-1-Globulin,Ur 1.2 % (.); PROELU- Beta Globulin, Ur 34.1 % (.); PROELU- Gamma Globulin, Ur 14.1 % (.); Total Protein, Ur 7.7 mg/dL (Not Estab.)
== END ==
PROVIDERS: PCP Family Medicine; Referring Provider Family Medicine; Visit Provider Family Medicine
DX: D89.2 Hypergammaglobulinemia, unspecified (principal)
CPT/HCPCS: 36415; 83036; 84165; 84166

== ENCOUNTER 2021-06-23 09:39 | Outpatient (CLI) | payer MEDICARE, OTHER, SELFPAY ==
--- NOTE | 2021-06-23 09:46 | ECHOD_ITS ---
Reason For Study: Arrhythmia Procedure This was a 2D Doppler, Color Flow transthoracic echocardiogram. Technically difficult due to patients body habitus. The study was technically difficult. Exam performed in department. Left Ventricle Normal LV size. Left ventricular systolic function is lower limits of normal. The estimated ejection fraction is 50 %. Septal motion consistent with IVCD. No evidence for diastolic dysfunction. No regional wall motion abnormalities noted. Right Ventricle Normal RV size. Normal systolic function. Atria The left atrium is mildly enlarged. Normal right atrium. No doppler evidence for ASD. Mitral Valve There is no mitral annular calcification. Normal mitral valve. Mild (1+) mitral valve insufficiency. Tricuspid Valve Normal tricuspid valve. Trivial tricuspid valve insufficiency. Unable to estimate RV systolic pressure/pulmonary artery pressure due to technically difficult study. Aortic Valve The aortic valve is not well visualized. Pulmonic Valve The pulmonic valve is not well visualized. Great Vessels The aortic root is not well visualized. Pericardium/Pleural No pericardial effusion. MMode/2D Measurements & Calculations LVIDd: 5.1 cm IVSd: 1.4 cm LA dimension: 3.7 cm LVIDs: 3.7 cm LVPWd: 1.2 cm FS: 26.9 % LAV(MOD-bp): 57.4 ml LA A2C-A/L_phl: 20.3 cm2 RA A4 area: 16.4 cm2 LAV(MOD-bp) Indexed: 23.6 ml/m2 LAV(MOD-sp2): 50.8 ml LAV(MOD-sp4): 61.0 ml Doppler Measurements & Calculations MV E max doe: 58.8 cm/sec Ao V2 max: 168.3 cm/sec LV V1 max: 119.7 cm/sec MV A max doe: 67.2 cm/sec Ao max P.4 mmHg LV V1 max P.9 mmHg MV E/A: 0.87 PA V2 max: 110.1 cm/sec ECHO/Echo Complete Interpretation Summary The study was technically difficult. Left ventricular systolic function is lower limits of normal. The estimated ejection fraction is 50 %. Septal motion consistent with IVCD. The left atrium is mildly enlarged. Mild (1+) mitral valve insufficiency. Trivial tricuspid valve insufficiency. Unable to estimate RV systolic pressure/pulmonary artery pressure due to techni agle difficult study. No evidence for diastolic dysfunction. Ordering Physician: Abilio Caldera Referring Physician: Cyndy Marcano Performed By: Rafa Dooley RCS
== END 2021-06-23 23:59 | disposition short-term general hospital (02) ==
LOC: CVS 09:42
PROVIDERS: PCP Family Medicine; Referring Provider Internal Medicine Cardiovascular Disease; Visit Provider Internal Medicine Cardiovascular Disease
DX: I49.1 Atrial premature depolarization (principal); I49.3 Ventricular premature depolarization; I44.7 Left bundle-branch block, unspecified
CPT/HCPCS: 93306

== ENCOUNTER 2021-09-23 09:37 | Outpatient (CLI) | payer MEDICARE, OTHER, SELFPAY ==
--- NOTE | 2021-09-23 09:38 | ECHOL_ITS ---
Reason For Study: OTHER decreased EF. Procedure This was a limited 2D transthoracic echocardiogram. The study was technically difficult. Due to body habitus. Best parasternal images were acquired with patient in supine position. Limited views were obtained. Exam performed in department. Left Ventricle Based upon the 2D echocardiographic images obtained there appears to be grossly normal left ventricular size, with paradoxical septal wall motion compatible with an underlying IVCD, with borderline low normal LV systolic function. The estimated ejection fraction is 50 %. Right Ventricle Normal RV size. Normal systolic function. Atria The left atrium is mildly enlarged. Normal right atrium. Mitral Valve There is no mitral annular calcification. Mild focal mitral valve calcification of the posterior leaflet. Tricuspid Valve The tricuspid valve is not well visualized. Aortic Valve The aortic valve is not well visualized. Pulmonic Valve The pulmonic valve is not well visualized. Great Vessels Normal sized aortic root. Pericardium/Pleural No pericardial effusion. MMode/2D Measurements & Calculations LVIDd: 5.6 cm IVSd: 1.1 cm Ao root diam: 3.4 cm LVIDs: 4.9 cm LVPWd: 1.3 cm LA dimension: 3.7 cm FS: 12.7 % LAV(MOD-bp): 113.0 ml LVAd ap4: 41.5 cm2 LVAd ap2: 41.0 cm2 LAV(MOD-bp) Indexed: 46.9 ml/m2 LVLd ap4: 9.1 cm LVLd ap2: 8.9 cm LAV(MOD-sp2): 121.8 ml EDV(MOD-sp4): 153.2 ml EDV(MOD-sp2): 163.5 ml LAV(MOD-sp4): 100.7 ml EDV(sp4-el): 161.6 ml EDV(sp2-el): 160.6 ml LVAs ap4: 26.9 cm2 LVAs ap2: 27.5 cm2 LVLs ap4: 7.6 cm LVLs ap2: 7.8 cm ESV(MOD-sp4): 79.4 ml ESV(MOD-sp2): 88.4 ml ESV(sp4-el): 81.0 ml ESV(sp2-el): 82.6 ml EF(MOD-sp4): 48.2 % EF(MOD-sp2): 46.0 % EF(sp4-el): 49.9 % SV(MOD-sp4): 73.9 ml SV(MOD-sp2): 75.1 ml SV(sp4-el): 80.6 ml LA A4 area: 27.6 cm2 RA A4 area: 18.8 cm2 ECHO/Echo, Limited Study Interpretation Summary The study was technically difficult. Limited views were obtained. Based upon the 2D echocardiographic images obtained there appears to be grossly normal left ventricular size, with paradoxical septal wall motion compatible with an underl bijal IVCD, with borderline low normal LV systolic function. The estimated ejection fraction is 50 %. The left atrium is mildly enlarged. Mild focal mitral valve calcification of the posterior leaflet. Ordering Physician: Abilio Caldera Referring Physician: Cyndy Marcano Performed By: Bhargavi Mooney, PATY, RVT
== END 2021-09-23 23:59 | disposition home or self-care (01) ==
LOC: CVS 09:38
PROVIDERS: PCP Family Medicine; Visit Provider Internal Medicine Cardiovascular Disease
DX: I44.7 Left bundle-branch block, unspecified (principal); I49.3 Ventricular premature depolarization; I49.1 Atrial premature depolarization; I10 Essential (primary) hypertension; R93.1 Abnormal findings on diagnostic imaging of heart and coronary circulation
CPT/HCPCS: 93308

== ENCOUNTER → 2021-12-18 | Outpatient (CLI) | payer MEDICARE, OTHER, SELFPAY ==
--- NOTE | 2021-12-18 10:00 | BI_ITS ---
MAMMOGRAPHY - BILATERAL SCREENING REASON FOR EXAM: Female, 66 years old. Routine annual screening examination. PERTINENT HISTORY: Grandmother with breast cancer. TECHNIQUE: Digital bilateral breast annika (3D mammographic acquisition) in the CC and MLO projections. 2-D mediolateral oblique (MLO) and craniocaudad (CC) views of both breasts were obtained. CAD: Full Field Digital Mammography with Computer Added Detection was performed. COMPARISON: Comparison is made with prior study dated 12/17/2020 and 08/29/2019. FINDINGS: Breast Composition: The breasts are heterogeneously dense, which may obscure small masses. There are no dominant masses or suspicious calcifications. Stable small benign-appearing bilateral axillary lymph nodes. No other significant abnormalities are identified. There has been no significant change since the prior study. BI/SCRN MAMM (CAD)W/ANNIKA BILAT IMPRESSION: Stable bilateral screening mammogram. Yearly follow-up mammogram recommended. (A) ASSESSMENT CATEGORY: BIRADS Category 2: Benign. A letter regarding these results will be sent to the patient by the facility within 30 days. Approximately 10% of breast cancers are not detected by mammography. A normal mammogram should not delay biopsy of a clinically suspicious abnormality. [id number] Electronically Signed: Woody Davenport MD at 11:04 EDT ,
== END | disposition home or self-care (01) ==
LOC: OPBI 09:58
PROVIDERS: PCP Family Medicine; Referring Provider Family Medicine; Visit Provider Family Medicine
DX: Z12.31 Encounter for screening mammogram for malignant neoplasm of breast (principal)
CPT/HCPCS: 77063; 77067

== ENCOUNTER → 2022-02-04 | Outpatient (CLI) | payer MEDICARE, OTHER, SELFPAY | END | disposition home or self-care (01) | PROVIDERS: PCP Family Medicine; Visit Provider Family Medicine | DX: R30.0 Dysuria (principal) | CPT/HCPCS: 87086; 87088 ==

== ENCOUNTER → 2022-03-18 | Outpatient (CLI) | payer MEDICARE, OTHER, SELFPAY ==
[2022-03-18 12:16] LABS: Absolute Lymphocyte Count 1.18 X10^3/uL (0.83-4.51); Basophil# 0.05 X10^3/uL; Basophil% 0.7 % (0-1); Eosinophil# 0.18 X10^3/uL; Eosinophils% 2.6 % (0-5); Hematocrit 38.7 % (37-47); Lymphocyte # 1.18 X10^3/ul (0.83-4.51); Lymphocyte % 17.2 % (19-41); Mean Corpuscular Hgb 27.5 pg (27.0-32.0); Mean Corpuscular Volume 88.6 fL (81-99); Mean Platelet Vol. 9.7 fl (6.2-12.0); Monocyte# 0.42 X10^3/uL; Monocyte% 6.1 % (0-10); NRBC Flagged by Analyzer 0 % (0-5); Platelet Count 273 K/mm3 (150-450); RBC Distribution Width CV 14.2 % (11.6-14.6); Red Blood Count 4.37 M/mm3 (4.2-5.4); White Blood Count 6.9 K/mm3 (4.4-11.0)
[2022-03-18 12:38] LABS: ALB/GLOB Ratio 0.8 RATIO (0.9-2.4); AST(SGOT) 19 U/L (15-37); Alanine Aminotransfer ALT/SGPT 20 U/L (13-56); Albumin, Serum 3.4 g/dL (3.2-5.0); Alkaline Phosphatase 106 U/L (45-117); Anion Gap 5 (5-15); BUN 20 mg/dL (7-18); BUN/Creat Ratio 24.3 RATIO (10-20); Calcium,Total 9.6 mg/dL (8.5-10.1); Chloride 104 mmol/L (98-107); Cholesterol 156 mg/dL (200); Creatinine, Serum 0.82 mg/dL (0.55-1.02); EST Glomerular Filtration Rate 73 mL/min (>60); Est Glom Filt Rate - Afr Amer 89 mL/min (>60); Glucose 90 mg/dL (74-106); High Density Lipoprotein 49 mg/dL; Protein, Total 7.4 g/dL (6.4-8.2); Sodium Level 140 mmol/L (136-145); Triglycerides 101 mg/dL; Very Low Density Lipoprotein 20 mg/dL (5-40)
== END | disposition home or self-care (01) ==
LOC: MTLAB 09:30
PROVIDERS: PCP Family Medicine; Referring Provider Family Medicine; Visit Provider Family Medicine
DX: I10 Essential (primary) hypertension (principal); E78.5 Hyperlipidemia, unspecified; R73.03 Prediabetes
CPT/HCPCS: 36415; 80053; 80061; 85025

== ENCOUNTER → 2022-03-22 | Outpatient (CLI) | payer MEDICARE, OTHER, SELFPAY | END | disposition home or self-care (01) | LOC: PSN 08:52 | PROVIDERS: PCP Family Medicine; Referring Provider Internal Medicine Cardiovascular Disease; Visit Provider Internal Medicine Cardiovascular Disease | DX: I10 Essential (primary) hypertension (principal); E78.5 Hyperlipidemia, unspecified; I44.7 Left bundle-branch block, unspecified; I49.3 Ventricular premature depolarization; I49.1 Atrial premature depolarization | CPT/HCPCS: 93225; 93226 ==

== ENCOUNTER → 2022-07-07 | Outpatient (CLI) | payer MEDICARE, OTHER, SELFPAY ==
--- NOTE | 2022-07-07 13:01 | ECHOCS_ITS ---
Reason For Study: CHF Procedure This was a 2D Doppler, Color Flow transthoracic echocardiogram. The study was technically difficult. Contrast injection was performed. Exam performed in department. Left Ventricle Based upon the 2D echocardiographic and contrast enhanced images obtained there appears to be grossly normal left ventricular size with borderline low LV systolic function. The estimated ejection fraction is 50 %. Stage 2 diastolic dysfunction. Right Ventricle Normal RV size. Normal systolic function. Atria The left atrium is mildly enlarged. Normal right atrium. No doppler evidence for ASD. Mitral Valve There is no mitral annular calcification. Normal mitral valve. Trivial mitral valve insufficiency. Tricuspid Valve Normal tricuspid valve. Trivial tricuspid valve insufficiency. Right ventricular systolic pressure estimated to be 41 mmHg. Aortic Valve Trisinus/trileaflet aortic valve. Mild focal aortic valve calcification. Pulmonic Valve The pulmonic valve is not well visualized. Great Vessels Normal sized aortic root. Pericardium/Pleural No pericardial effusion. Medication 20 gauge I.V. with prn adaptor inserted into right arm. Diluted definity 2ml given slow IV push to enhance endocardial definition. MMode/2D Measurements & Calculations LVIDd: 5.5 cm IVSd: 1.2 cm Ao root diam: 3.2 cm LVIDs: 4.4 cm LVPWd: 1.1 cm LA dimension: 4.1 cm RVDd: 3.8 cm FS: 19.5 % LAV(MOD-sp4): 87.9 ml LA A4 area: 25.7 cm2 RA A4 area: 16.0 cm2 Time Measurements MV dec time: 0.23 sec Doppler Measurements & Calculations MV E max xander: 88.4 cm/sec Lat Peak E' Xander: 12.3 cm/sec Med Peak E' Xander: 9.2 cm/sec MV A max xander: 91.3 cm/sec E/E' lat: 7.2 E/E' med: 9.6 MV E/A: 0.97 MV V2 max: 93.9 cm/sec Ao V2 max: 129.5 cm/sec LV V1 max: 119.7 cm/sec MV max P.5 mmHg Ao max P.8 mmHg LV V1 max P.4 mmHg MV V2 mean: 43.8 cm/sec MV mean P.00 mmHg MV V2 VTI: 40.5 cm PA V2 max: 132.2 cm/sec TR max xander: 309.1 cm/sec TR max P.2 mmHg ECHO/Echo Complete W/ Contrast Interpretation Summary The study was technically difficult. Contrast injection was performed. Based upon the 2D echocardiographic and contrast enhanced images obtained there appears to be grossly normal left ventricular size with borderline low LV systolic function. The estimated ejection fraction is 50 %. The left atrium is mildly enlarged. Trivial mitral valve insufficiency. Trivial tricuspid valve insufficiency. Mild focal aortic valve calcification. Right ventricular systolic pressure estimated to be 41 mmHg. Stage 2 diastolic dysfunction. Ordering Physician: Abilio Caldera Referring Physician: Cyndy Marcano Performed By: Rafa Dooley RCS
== END | disposition home or self-care (01) ==
PROVIDERS: PCP Family Medicine; Visit Provider Internal Medicine Cardiovascular Disease
DX: I50.30 Unspecified diastolic (congestive) heart failure (principal); I42.9 Cardiomyopathy, unspecified; I49.1 Atrial premature depolarization; R93.1 Abnormal findings on diagnostic imaging of heart and coronary circulation; I49.3 Ventricular premature depolarization; I44.7 Left bundle-branch block, unspecified; I10 Essential (primary) hypertension
CPT/HCPCS: 93306; Q9957; A4216; C8929

== ENCOUNTER → 2022-09-16 | Outpatient (CLI) | payer MEDICARE, OTHER, SELFPAY ==
[2022-09-16 12:39] LABS: Basophil# 0.05 X10^3/uL; Basophil% 0.8 % (0-1); Eosinophil# 0.19 X10^3/uL; Eosinophils% 3.2 % (0-5); Hematocrit 39.3 % (37-47); Hemoglobin 11.9 g/dL (12.0-15.0); Lymphocyte % 21.6 % (19-41); Mean Corp Hgb Conc 30.3 g/dL (32-36); Mean Corpuscular Hgb 27.1 pg (27.0-32.0); Mean Corpuscular Volume 89.5 fL (81-99); Monocyte# 0.42 X10^3/uL; NRBC Flagged by Analyzer 0 % (0-5); Neutrophil # 4.04 X10^3/uL (2.7-7.7); Neutrophil % 66.9 % (47-70); Platelet Count 256 K/mm3 (150-450); RBC Distribution Width SD 45.9 fl (35.1-43.9); Red Blood Count 4.39 M/mm3 (4.2-5.4)
[2022-09-16 12:54] LABS: ALB/GLOB Ratio 0.8 RATIO (0.9-2.4); AST(SGOT) 19 U/L (15-37); Alanine Aminotransfer ALT/SGPT 19 U/L (13-56); Albumin, Serum 3.4 g/dL (3.2-5.0); Alkaline Phosphatase 106 U/L (45-117); Anion Gap 6 (5-15); BUN 20 mg/dL (7-18); BUN/Creat Ratio 21.8 RATIO (10-20); Calcium,Total 9.3 mg/dL (8.5-10.1); Chloride 102 mmol/L (98-107); Cholesterol 138 mg/dL (200); Creatinine, Serum 0.92 mg/dL (0.55-1.02); EST Glomerular Filtration Rate 65 mL/min (>60); Est Glom Filt Rate - Afr Amer 78 mL/min (>60); Glucose 98 mg/dL (74-106); High Density Lipoprotein 46 mg/dL; Potassium 4.5 mmol/L (3.5-5.1); Protein, Total 7.4 g/dL (6.4-8.2); Sodium Level 138 mmol/L (136-145); Triglycerides 81 mg/dL; Very Low Density Lipoprotein 16 mg/dL (5-40)
== END | disposition home or self-care (01) ==
LOC: BFHLAB 09:09
PROVIDERS: PCP Family Medicine; Referring Provider Family Medicine; Visit Provider Family Medicine
DX: Z00.00 Encounter for general adult medical examination without abnormal findings (principal); E78.5 Hyperlipidemia, unspecified; R73.03 Prediabetes; I10 Essential (primary) hypertension
CPT/HCPCS: 36415; 80053; 80061; 83036; 85025

== ENCOUNTER → 2023-01-05 | Outpatient (CLI) | payer MEDICARE, OTHER, SELFPAY ==
--- NOTE | 2023-01-05 10:33 | BI_ITS ---
MAMMOGRAPHY - BILATERAL SCREENING 3-D TOMOSYNTHESIS REASON FOR EXAM: Female, 67 years old. Routine screening PERTINENT HISTORY: Grandmother with breast cancer.. TECHNIQUE: 2-D mammograms and 3-D Tomosynthesis of the breast (s) were performed. CAD was performed. COMPARISON: 12/17/2020 FINDINGS: The breast composition is heterogeneously dense that can obscure small breast masses. Scattered benign calcifications are seen. No dense spiculated masses or suspicious microcalcifications are identified. No architectural distortion is identified. There is no skin thickening or retraction. There has been no significant change since the prior study. BI/SCRN MAMM (CAD)W/ANNIKA BILAT IMPRESSION: No mammographic signs of malignancy. Routine yearly mammograms recommended. ASSESSMENT CATEGORY: BIRADS Category 2: Benign. A letter regarding these results will be sent to the patient by the facility within 30 days. FOLLOW UP RECOMMENDATION: Yearly follow up mammogram recommended. (A) Approximately 10% of breast cancers are not detected by mammography. A normal mammogram should not delay biopsy of a clinically suspicious abnormality. Electronically Signed: Miguel Angel Wiggins MD at 13:00 EDT ,
== END | disposition home or self-care (01) ==
LOC: OPBI 10:31
PROVIDERS: PCP Family Medicine; Referring Provider Family Medicine; Visit Provider Family Medicine
DX: Z12.31 Encounter for screening mammogram for malignant neoplasm of breast (principal); Z80.3 Family history of malignant neoplasm of breast
CPT/HCPCS: 77063; 77067

== ENCOUNTER → 2023-02-22 | Outpatient (CLI) | payer MEDICARE, OTHER, SELFPAY ==
[2023-02-22 14:48] LABS: Absolute Lymphocyte Count 1.18 X10^3/uL (0.83-4.51); Absolute Neutrophil Count 5.1 X10^3/uL (2.0-7.7); Basophil# 0.03 X10^3/uL; Basophil% 0.4 % (0-1); Eosinophil# 0.11 X10^3/uL; Eosinophils% 1.6 % (0-5); Hematocrit 39.5 % (37-47); Hemoglobin 12.5 g/dL (12.0-15.0); Lymphocyte # 1.18 X10^3/ul (0.83-4.51); Lymphocyte % 17.3 % (19-41); Mean Corp Hgb Conc 31.6 g/dL (32-36); Mean Corpuscular Hgb 27.7 pg (27.0-32.0); Mean Corpuscular Volume 87.6 fL (81-99); Mean Platelet Vol. 9.7 fl (6.2-12.0); Monocyte# 0.41 X10^3/uL; NRBC Flagged by Analyzer 0 % (0-5); Neutrophil # 5.06 X10^3/uL (2.7-7.7); Neutrophil % 74.3 % (47-70); Platelet Count 290 K/mm3 (150-450); RBC Distribution Width SD 45.1 fl (35.1-43.9); Red Blood Count 4.51 M/mm3 (4.2-5.4); White Blood Count 6.8 K/mm3 (4.4-11.0)
[2023-02-22 15:17] LABS: Anion Gap 6 (5-15); BUN 22 mg/dL (7-18); BUN/Creat Ratio 23.1 RATIO (10-20); Calcium,Total 9.8 mg/dL (8.5-10.1); Chloride 102 mmol/L (98-107); Creatinine, Serum 0.95 mg/dL (0.55-1.02); EST Glomerular Filtration Rate 62 mL/min (>60); Est Glom Filt Rate - Afr Amer 75 mL/min (>60); Glucose 92 mg/dL (74-106); Potassium 3.8 mmol/L (3.5-5.1); Sodium Level 136 mmol/L (136-145); T4 Free Direct 1.58 ng/dL (0.76-1.46); Thyroid Stim Hormone (TSH) 1.55 uIU/mL (0.358-3.74)
== END | disposition home or self-care (01) ==
LOC: BFHLAB 13:47
PROVIDERS: PCP Family Medicine; Referring Provider Family Medicine; Visit Provider Family Medicine
DX: M62.830 Muscle spasm of back (principal); E78.5 Hyperlipidemia, unspecified; R73.03 Prediabetes; I10 Essential (primary) hypertension; E05.80 Other thyrotoxicosis without thyrotoxic crisis or storm; T46.2X5A Adverse effect of other antidysrhythmic drugs, initial encounter
CPT/HCPCS: 36415; 80048; 84439; 84443; 85025

== ENCOUNTER → 2023-02-24 | Outpatient (CLI) | payer MEDICARE, OTHER, SELFPAY ==
--- NOTE | 2023-02-24 12:54 | ECHOCS_ITS ---
Reason For Study: ARRHYTHMIA Procedure This was a 2D Doppler, Color Flow transthoracic echocardiogram. The study was technically difficult. Due to arrhythmia and body habitus. Contrast injection was performed. Exam performed in department. Left Ventricle Normal LV size. The estimated ejection fraction is 45 %. Stage 1 diastolic dysfunction. No regional wall motion abnormalities noted. Right Ventricle Normal RV size. Normal systolic function. Atria The left atrium is moderately enlarged. Normal right atrium. Mitral Valve Mitral valve not well visualized. Tricuspid Valve Normal tricuspid valve. Aortic Valve The aortic valve is not well visualized. Pulmonic Valve The pulmonic valve is not well visualized. Great Vessels Normal aortic root. The pulmonary artery is normal size. Normal inferior vena cava. Pericardium/Pleural No pericardial effusion. Medication 22 gauge I.V. with prn adaptor inserted into right arm. Diluted definity 4.0ml given slow IV push to enhance endocardial definition. MMode/2D Measurements & Calculations LVIDd: 4.6 cm IVSd: 1.1 cm Ao root diam: 3.0 cm LVIDs: 3.8 cm LVPWd: 1.1 cm RVDd: 2.9 cm FS: 16.9 % LAV(MOD-bp): 104.8 ml LVAd ap4: 32.3 cm2 SV(MOD-sp4): 39.9 ml LAV(MOD-bp) Indexed: 43.8 ml/m2 LVLd ap4: 9.3 cm LAV(MOD-sp2): 94.0 ml EDV(MOD-sp4): 96.2 ml LAV(MOD-sp4): 111.4 ml EDV(sp4-el): 94.7 ml LVAs ap4: 21.3 cm2 LVLs ap4: 7.0 cm ESV(MOD-sp4): 56.3 ml ESV(sp4-el): 54.8 ml EF(MOD-sp4): 41.5 % EF(sp4-el): 42.1 % SV(sp4-el): 39.9 ml LA A4 area: 28.4 cm2 LA dimension(2D): 4.2 cm RA A4 area: 21.4 cm2 Time Measurements MV dec time: 0.22 sec Doppler Measurements & Calculations MV E max doe: 87.4 cm/sec MV V2 max: 116.1 cm/sec MV P1/2t max doe: 104.6 cm/sec MV A max doe: 108.8 cm/sec MV max P.4 mmHg MV P1/2t: 77.7 msec MV E/A: 0.80 MV V2 mean: 56.2 cm/sec MV dec slope: 394.2 cm/sec2 MV mean P.5 mmHg MV V2 VTI: 40.3 cm MVA(P1/2t): 2.8 cm2 Ao V2 max: 141.7 cm/sec PA V2 max: 102.2 cm/sec Ao max P.4 mmHg Ao V2 mean: 98.2 cm/sec Ao mean P.6 mmHg Ao V2 VTI: 31.5 cm ECHO/Echo Complete W/ Contrast Interpretation Summary Normal LV size. The estimated ejection fraction is 45 %. No regional wall motion abnormalities noted. The left atrium is moderately enlarged. Normal right atrium. Stage 1 diastolic dysfunction. Contrast injection was performed. Ordering Physician: Marcos Wesley Referring Physician: Cyndy Marcano Performed By: Bhargavi Mooney, RDCS, RVT
== END | disposition home or self-care (01) ==
PROVIDERS: PCP Family Medicine; Referring Provider Internal Medicine Cardiovascular Disease; Visit Provider Internal Medicine Cardiovascular Disease
DX: I49.1 Atrial premature depolarization (principal)
CPT/HCPCS: 93225; 93226; 93306; Q9957; A4216; C8929

== ENCOUNTER → 2023-03-17 | Outpatient (CLI) | payer MEDICARE, OTHER, SELFPAY ==
[2023-03-23 21:14] LABS: HPV Reflexed? NOT INDICATED
== END | disposition home or self-care (01) ==
PROVIDERS: PCP Family Medicine; Visit Provider Family Medicine
DX: Z12.4 Encounter for screening for malignant neoplasm of cervix (principal); N95.0 Postmenopausal bleeding
CPT/HCPCS: 88175; G0145

== ENCOUNTER → 2023-03-21 | Outpatient (CLI) | payer MEDICARE, OTHER, SELFPAY ==
--- NOTE | 2023-03-21 15:08 | US_ITS ---
INDICATION: POST BRETT BLEEDING EXAMINATION: Ultrasound US Pelvis Non OB Complete With Transvaginal Imaging TECHNIQUE: Transabdominal and transvaginal pelvic ultrasound was performed. Grayscale and color flow Doppler evaluation of the adnexa. COMPARISON: No relevant prior comparison study available FINDINGS: UTERUS: Anteverted. The uterus measures 5.6 x 3.1 x 2.1 cm. There is no uterine mass. The endometrial stripe measures 0.2 cm in AP diameter which is within normal limits. Nabothian cyst seen at the cervix. ADNEXA: The ovaries are not visualized. No adnexal mass. Patient reports previous unilateral oophorectomy. FREE FLUID: None. US/Pelvic w/ Transvaginal IMPRESSION: Unremarkable appearance of the uterus. No adnexal mass. Ovaries are not visualized. Electronically Signed: Neftali Davis MD at 1:02 EDT ,
== END | disposition home or self-care (01) ==
LOC: US 15:07
PROVIDERS: PCP Family Medicine; Referring Provider Family Medicine; Visit Provider Family Medicine
DX: N95.0 Postmenopausal bleeding (principal)
CPT/HCPCS: 76830; 76856

== ENCOUNTER → 2023-04-19 | Outpatient (CLI) | payer MEDICARE, OTHER, SELFPAY ==
--- NOTE | 2023-04-19 15:19 | BD_ITS ---
STUDY: DUAL ENERGY X-RAY ABSORPTIOMETRY / DXA REASON FOR EXAM: Female, 68 years old. S31.010A TECHNIQUE: Bone Mineral Density (BMD) measurements of lumbar spine and bilateral hips were obtained. COMPARISON: Comparison is made with prior study dated September 24, 2020. FINDINGS: Lumbar Spine (L1-L4): g/cm2 (1.135) / T-score (0.8) / Z-score (2.8) Findings are suggestive of normal bone density with a low fracture risk. Left Femur Total: g/cm2 (1.058) / T-score (1.0) / Z-score (2.4) Left Femoral Neck: g/cm2 (0.866) / T-score (0.2) / Z-score (1.9) Right Femur Total: g/cm2 (0.998) / T-score (0.5) / Z-score (1.9) Right Femoral Neck: g/cm2 (0.887) / T-score (0.3) / Z-score (2.1) 1.058 The T-Scores on the most recent prior examination were: Lumbar Spine (L1-L4): There has been improvement of bone density since the previous examination. Left Femur Total: which represents an improvement of 7.2%. Right Femur Total: which represents an improvement of 4.9%. BD/Dexa Bone Density Study IMPRESSION: The patient is considered normal as outlined below according to World Brandon Organization (WHO) criteria with a low fracture risk. There has been improvement of bone density since the previous examination. Reference Information: The T-score is the number of standard deviations above or below the standard which is normal for young adults at their peak bone mineral density. The World Health Organization (WHO) interprets the T-scores as follows: Above -1 Normal bone density Between -1 and -2.5 Osteopenia Equal to / or below -2.5 Osteoporosis As a practical clinical guideline, osteopenia may be graded as follows: Mild -1 through -1.5 Moderate -1.6 through -2.0 Severe -2.1 through -2.4 The Z-score is the number of standard deviations above or below age-matched controls. A Z-score of less than -1.5 would be considered abnormal. References: 1. NIH Osteoporosis and Related Bone Diseases www osteo.org 2. International Society for Clinical Densitometry www iscd.org 3. National Osteoporosis Foundation www nof.org Electronically Signed: Woody Davenport MD at 9:06 EDT ,
== END | disposition home or self-care (01) ==
LOC: OPBD 14:56
PROVIDERS: PCP Family Medicine; Referring Provider Family Medicine; Visit Provider Family Medicine
DX: S32.010A Wedge compression fracture of first lumbar vertebra, initial encounter for closed fracture (principal)
CPT/HCPCS: 77080

== ENCOUNTER 2023-04-25 13:30 | Outpatient (RCR) | payer MEDICARE, OTHER, SELFPAY ==
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
--- NOTE | 2023-04-25 13:54 | HP.PTDCSUM ---
Discharge Summary D/C summary: It has been my pleasure to treat DAVE SANTIAGO referred by DIANA DINH, with the diagnosis of R shoulder pain for a total of 9 visit(s). Discharge Date: 04/25/23 Please see the following information for a summary of their discharge status. Subjective Subjective: She was having trouble sleeping but now she does not notice the pain. She is doing her HEP and feels can continue to do that at home. Her bands are challenging enough. Pain R shoulder pain: Pain Intensity (Out of 10): 0 Overall Improvement % Improvement: 100 Objective Objective/Function: R shoulder AROM: Flex 155 degrees, Shoulder abd 152, ER 65, IR T12 R shoulder MMT: flex 10.6, ABD 8.7, ER 10.2, IR 13.3 Does not notice the pain with sleeping Able to reach out to the side without pain Goals Goal 1:: I HEP Goal Progress: Goal Met Goal 2:: Be able to reach to pickle cutter something laterally off the coffee table or reach behind the car seat without pain or 50% improvement Goal Progress: Goal Met Goal 3:: Increase R Shoulder AROM (at the time of the eval: R shoulder AROM: Flex 132 degrees, Shoulder abd 124, ER 42, IR L3 L shoulder AROM: flex 135 , abd 140 degrees, ER 49, IR T12). Goal Progress: Goal Met Goal 4:: Increase R shoulder MMT: (at the time of the eval: R shoulder MMT: flex 10.6, ABD 7.8, ER 9.7, IR 11.4 L shoulder MMT: flex 11.2, ABD 10.8, ER 10, IR 14.6) Goal Progress: Goal Met Goal 5:: Decrease overall night pain to none Goal Progress: Goal Met Plan Plan: DC PT to HEP D/C Information Discharge Comments: DC PT to HEP d/c sentence: If there are questions or concerns regarding this patient's physical therapy, please feel free to call me at [phone]. Thank you for the referral of this patient. Sincerely, Hayley Conteh, MPT Balance/Gait/Functional tests Balance/Special Test Scores Quick DASH Score: 4.5450 Improvement % Improvement: 100
== END 2023-04-25 14:30 | disposition home or self-care (01) ==
LOC: PT 13:30
PROVIDERS: PCP Family Medicine
DX: S46.011D Strain of muscle(s) and tendon(s) of the rotator cuff of right shoulder, subsequent encounter (principal)
CPT/HCPCS: 97110; 97161; 97530

== ENCOUNTER → 2023-09-22 | Outpatient (CLI) | payer MEDICARE, OTHER, SELFPAY ==
[2023-09-22 12:06] LABS: Absolute Lymphocyte Count 1.17 X10^3/uL (0.83-4.51); Absolute Neutrophil Count 4.6 X10^3/uL (2.0-7.7); Basophil# 0.04 X10^3/uL; Basophil% 0.6 % (0-1); Eosinophil# 0.23 X10^3/uL; Eosinophils% 3.6 % (0-5); Hematocrit 40.3 % (37-47); Hemoglobin 12.2 g/dL (12.0-15.0); Lymphocyte # 1.17 X10^3/ul (0.83-4.51); Lymphocyte % 18.1 % (19-41); Mean Corp Hgb Conc 30.3 g/dL (32-36); Mean Corpuscular Hgb 26.6 pg (27.0-32.0); Mean Corpuscular Volume 87.8 fL (81-99); Mean Platelet Vol. 9.6 fl (6.2-12.0); Monocyte# 0.42 X10^3/uL; Monocyte% 6.5 % (0-10); NRBC Flagged by Analyzer 0 % (0-5); Neutrophil # 4.56 X10^3/uL (2.7-7.7); Neutrophil % 70.7 % (47-70); Platelet Count 299 K/mm3 (150-450); RBC Distribution Width CV 14.3 % (11.6-14.6); RBC Distribution Width SD 45.3 fl (35.1-43.9); Red Blood Count 4.59 M/mm3 (4.2-5.4); White Blood Count 6.5 K/mm3 (4.4-11.0)
[2023-09-22 12:53] LABS: ALB/GLOB Ratio 0.8 RATIO (0.9-2.4); AST(SGOT) 26 U/L (15-37); Alanine Aminotransfer ALT/SGPT 21 U/L (13-56); Albumin, Serum 3.4 g/dL (3.2-5.0); Alkaline Phosphatase 120 U/L (45-117); Anion Gap 5 (5-15); BUN 21 mg/dL (7-18); BUN/Creat Ratio 23.4 RATIO (10-20); Calcium,Total 9.4 mg/dL (8.5-10.1); Chloride 104 mmol/L (98-107); Cholesterol 160 mg/dL (200); EST Glomerular Filtration Rate 66 mL/min (>60); Est Glom Filt Rate - Afr Amer 80 mL/min (>60); Globulin 4.3 g/dL (2.2-4.2); Glucose 90 mg/dL (74-106); High Density Lipoprotein 56 mg/dL; Potassium 4.1 mmol/L (3.5-5.1); Protein, Total 7.7 g/dL (6.4-8.2); Sodium Level 134 mmol/L (136-145); Triglycerides 87 mg/dL; Very Low Density Lipoprotein 17 mg/dL (5-40)
== END | disposition home or self-care (01) ==
LOC: BFHLAB 11:01
PROVIDERS: PCP Family Medicine; Visit Provider Family Medicine
DX: I10 Essential (primary) hypertension (principal); E78.5 Hyperlipidemia, unspecified
CPT/HCPCS: 36415; 80053; 80061; 85025

== ENCOUNTER → 2023-10-26 | Outpatient (CLI) | payer MEDICARE, OTHER, SELFPAY | END | disposition home or self-care (01) | LOC: PSN 08:06 | PROVIDERS: PCP Family Medicine; Referring Provider Physician Assistant Medical; Visit Provider Physician Assistant Medical | DX: I42.9 Cardiomyopathy, unspecified (principal); R93.1 Abnormal findings on diagnostic imaging of heart and coronary circulation; I49.3 Ventricular premature depolarization | CPT/HCPCS: 93225; 93226 ==

== ENCOUNTER → 2023-11-21 | Outpatient (CLI) | payer MEDICARE, OTHER, SELFPAY ==
--- NOTE | 2023-11-21 13:56 | ECHOD_ITS ---
Reason For Study: Cardiomyopathy Procedure This was a 2D Doppler, Color Flow transthoracic echocardiogram. Exam performed in department. Left Ventricle Normal LV size. Mild concentric left ventricular hypertrophy. Mild global left ventricular systolic dysfunction. The left ventricular ejection fraction is 50 %. Septal motion consistent with bundle branch block. No regional wall motion abnormalities noted. Right Ventricle Normal RV size. Normal systolic function. Atria The left atrium is moderately enlarged. Normal right atrium. Mitral Valve There is mild mitral annular calcification. Mild (1+) eccentric mitral valve insufficiency. Tricuspid Valve Normal tricuspid valve. Mild (1+) tricuspid valve insufficiency. Pulmonary artery systolic pressure is 34 mmHg. Aortic Valve Trisinus/trileaflet aortic valve. Mild focal aortic valve thickening. Pulmonic Valve Normal pulmonic valve. Great Vessels Normal aortic root. The pulmonary artery is normal size. Inferior vena cava collapse with sniff. Pericardium/Pleural No pericardial effusion. MMode/2D Measurements & Calculations LVIDd: 5.4 cm IVSd: 1.2 cm Ao root diam: 3.4 cm LVIDs: 3.6 cm LVPWd: 1.2 cm RVDd: 3.7 cm FS: 33.3 % LAV(MOD-bp): 77.3 ml LVAd ap4: 38.3 cm2 SV(MOD-sp4): 64.9 ml LAV(MOD-bp) Indexed: 31.9 ml/m2 LVLd ap4: 9.3 cm LAV(MOD-sp2): 60.6 ml EDV(MOD-sp4): 130.4 ml LAV(MOD-sp4): 92.6 ml EDV(sp4-el): 133.5 ml LVAs ap4: 24.3 cm2 LVLs ap4: 7.7 cm ESV(MOD-sp4): 65.5 ml ESV(sp4-el): 65.2 ml EF(MOD-sp4): 49.8 % EF(sp4-el): 51.1 % SV(sp4-el): 68.3 ml LA A4 area: 27.6 cm2 RA A4 area: 19.1 cm2 TAPSE: 2.6 cm Time Measurements MV dec time: 0.21 sec Doppler Measurements & Calculations MV E max xander: 98.9 cm/sec Lat Peak E' Xander: 11.2 cm/sec Med Peak E' Xander: 7.8 cm/sec MV A max xander: 100.7 cm/sec E/E' lat: 8.9 E/E' med: 12.7 MV E/A: 0.98 MV dec slope: 480.1 cm/sec2 Ao V2 max: 166.1 cm/sec LV V1 max: 124.2 cm/sec Ao max P.3 mmHg LV V1 max P.4 mmHg PA V2 max: 109.1 cm/sec TR max xander: 282.0 cm/sec TR max P.8 mmHg ECHO/Echo Complete Interpretation Summary Normal LV size. Mild concentric left ventricular hypertrophy. The left ventricular ejection fraction is 50 %. Septal motion consistent with bundle branch block. Mild (1+) tricuspid valve insufficiency. Mild (1+) eccentric mitral valve insufficiency. Compared to previous study, the left ventricular systolic function has improved .. Ordering Physician: Linda Hutchison Referring Physician: Cyndy Marcano Performed By: Mariaa Fernandes, PATY
== END | disposition home or self-care (01) ==
LOC: CVS 13:54
PROVIDERS: PCP Family Medicine; Referring Provider Physician Assistant Medical; Visit Provider Physician Assistant Medical
DX: I49.1 Atrial premature depolarization (principal); I42.9 Cardiomyopathy, unspecified; R93.1 Abnormal findings on diagnostic imaging of heart and coronary circulation; I49.3 Ventricular premature depolarization
CPT/HCPCS: 93306

== ENCOUNTER → 2023-12-05 | Outpatient (CLI) | payer MEDICARE, OTHER, SELFPAY | END | disposition home or self-care (01) | LOC: SL 19:41 | PROVIDERS: PCP Family Medicine; Referring Provider Nurse Practitioner Family; Visit Provider Nurse Practitioner Family | DX: G47.10 Hypersomnia, unspecified (principal); I42.9 Cardiomyopathy, unspecified; I49.3 Ventricular premature depolarization | CPT/HCPCS: 95810 ==

== ENCOUNTER 2023-12-21 10:00 | Outpatient (RCR) | payer MEDICARE, OTHER, SELFPAY ==
--- NOTE | 2023-11-21 10:56 | HP.PTEVAL ---
Patient's Visit Information Visit Information Visit Information: DAVE SANTIAGO is a 68 year old F referred to Physical Therapy by ARNOLD Oro with a diagnosis of LUMBAR SPINAL STENOSIS & CHRONIC L1 AND L2 COMP FX'S. Date of Evaluation: 11/21/23 Physical Therapist: Ghazal Call PT, Cert MDT Visit Plan Frequency: 2-3x /Week Duration: 4-6 Weeks Plan: AQUATIC THERAPY FOR PAIN RELEIF, POSTURE CORRECTION/STRENGTHENING, INSTRUCTION IN APPROPRIATE BODY MECHANICS AND ACTIVITY MODIFICATIONS. DLS STARTING WITH A NEUTRAL SPINE PROGRESSING ROM TOLERATED. LEO LE ROM, STRETCHING AND STRENGTHENING. HEP INSTRUCTION. Subjective Subjective: Work/Leisure: RETIRED Present symptoms: GENERALIZED ACHING IN LOW BACK AND UPPER BACK. PATIENT DENIES LEO LE PAIN, NUMBNESS AND TINGLING. Present since: JAN 2023 Pain Scale: WORST 6/10, LEAST 0/10 Currently: 2-3/10 Is it getting better, worse or staying the same: STAYING SAME SINCE APR 2023 Commenced as a result of: NO APPARENT REASON - WIPING OUT THE OVEN - TWISTING - NOTICED ACHING AT THAT TIME BUT FELL A MONTH PRIOR. DIDN'T NOTICE ANY BACK PAIN AT THE TIME OF THE FALL (R ROTATOR CUFF TEAR AND L WRIST SPRAIN) Symptoms at onset: MILD LEFT LOW BACK ACHE Worse: STANDING AND WALKING. CLEANING PROJECTS LIKE CLEANING THE SUNROOM DOOR TRACKS - SITTING TO DO IT. Better: SITTING AND LYING DOWN. IBUPROFEN AT NIGHT ONCE IN AWHILE NEEDED. Disturbed sleep: NO Previous history/Previous treatment: L1 FX FROM A FALL 2019, BACK PAIN WHEN ON [facility] [facility] - WENT AWAY WHEN STOPPED THE MEDICINE BUT THEN HAD THE FALL (2019). NO BACK SURGERY OR INJECTIONS. Treatment this episode: NONE. L2 COMPRESSION FX DX'D FROM FALL IN DECEMBER 2022. CONSULTS WITH DR. JOHNSON AND DR. ELISE ZIMMERMAN. DR. JOHNSON RECOMMENDED KYPHOPLASTY. DR. ELISE ZIMMERMAN RECOMMENDED GIVING IT TIME AND THEN ON FOLLOW UP WITH HIS PA PHYSICAL THERPAY WAS RECOMMENDED. Coughing/sneezing/straining: YES Gait: TIME AND DISTANCE LIMITED DUE TO BACK PAIN. USES MOTORIZED CART AT [facility] TO SHOP IF GETTING A LOT OF GORCERIES. SHORT GROCERY TRIPS WITH STANDING GROCERY CART. USES A CANE SOMETIMES. Bowel or Bladder Dysfunction: NO Accidents: SEE FALL INFORMATION ABOVE Unexplained weight loss: NO Imaging: MOST RECENT BACK IMAGING WAS MRI OCT/APR 20[address] AT [facility] DR[address] JOHNSON. PMH/Recent major surgery: Cardiomyopathy Decreased cardiac ejection fraction Essential hypertension Hyperlipemia LBBB (left bundle branch block) Premature ventricular contraction Premature atrial contractions S/P trigger finger release History of bilateral cataract extraction History of carpal tunnel release History of left knee replacement History of knee replacement procedure of right knee S/P breast biopsy, left History of left oophorectomy Objective Objective: Sitting/Standing Posture: ANTERIOR PELVIC TILT. STANDS WITH LEO KNEE FLEX AND INCREASED TRUNK FLEXION. NO RELEVANT LATERAL SHIFT. R ILIAC CREST HIGHER THAN R. Other Observations: THIS PATIENT AMBULATES INDEP'LY INTO PT WITHOUT ANY AD'S WITH DECREASED CADANCE, INCREASED TRUNK FLEXION BUT NO LOB. Sensory deficit: LEO LE LIGHT TOUCH SENSATION GROSSLY INTACT AND SYMMETRICAL ROM deficit: B LE TIGHTNESS OF HIP FLEXORS, HS'S AND CALVES. Motor deficit: R LE: HP 4/5, KNEE 4/5, ANKLE 5/5. L HIP 4-/5, KNEE 4-/5, ANKLE 5/5 Dural Signs: NEGATIVE LEO LE'S. Lumbar mvmt loss: flex - MIN ext - MIKAEL R SG - MIKAEL - INCREASES L LOW BACK - NW L SG - MIKAEL - INCREASES L LOW BACK - NW Core strength: POOR Palpation: NO ACUTE LOWER THORACIC OR LUMBAR TENDERNESS. TUG TIME - 13.31 SEC WITHOUT AD. OTHER: ABLE TO TRANSFER SIT TO STAND WITHOUT UE ASSIST BUT VERY DIFFICULT. END OF SESSION - NO PAIN IN SITTING AND NO WORSE UPON DEPARTURE. Balance/Special Test Scores Oswestry Low Back Score: 13 Goals Goal 1:: PATIENT WILL REPORT AT LEAST 50% DECREASED BACK PAIN WITH ADL'S. Goal Time Frame: 4-6 Weeks Goal 2:: PATIENT WILL COMPLETE 6 STANDS IN 30 SECS WITHOUT UE'S OR INCREASED PAIN TO DEMONSTRATE IMPROVED FUNCTIONAL STRENGTH Goal Time Frame: 4-6 Weeks Goal 3:: PATIENT WILL COMPLETE TUG IN < 10 SECS TO DEMONSTRATE IMPROVED GAIT STABILITY Goal Time Frame: 4-6 Weeks Goal 4:: PATIENT WILL BE ABLE TO WALK FOR AT LEAST 10 MINUTES WITHOUT AD AND WITHOUT AGGREVATION OF SYMPTOMS IN ORDER TO PERFORM ADL'S AND IADL'S. Goal Time Frame: 4-6 Weeks Goal 5:: PATIENT WILL SCORE AT LEAST 5 POINTS BETTER ON BACK OSWESTRY QUESTIONNAIRE Goal Time Frame: 4-6 Weeks Goal 6:: PATIENT WILL BE INDEP WITH A HEP FOR CONTINUED IMPROVEMENT ONCE FORMAL PHYSICAL THERAPY CONCLUDES. Goal Time Frame: 4-6 Weeks Rehabilitation Potential Physical Therapy Diagnosis: C/O LOW BACK PAIN L>R LIMITING STANDING, WALKING AND ADL FUNCTION. CORE WEAKNESS AND STIFFNESS. LE WEAKNESS AND STIFFNESS. Rehabilitation Potential: Fair Anticipated Interventions Patient/Client Instruction: Educate patient on: Condition, Plan of Care and Risk Factors For the Purpose of:: To improve self management Therapeutic Exercise to Include: Strength training, Body mechanics, Postural training, Flexibilty training, Neuromotor development, In an aquatic setting and Dynamic Lumbar Stabilization For the Purpose of:: To decrease pain, To improve muscle performance and motor function, To increase tolerance to activity/condition/position, To improve ability of physical actions for home/community/work/leisure, To improve gait and locomotor functions and To increase flexibility/ROM Text: Thank you for the opportunity to evaluate your patient. For Medicare and Medicare HMO plans, please review the plan of care and approve it. It will need to be FAXED BACK to us at [phone] for Medicare purposes. For Medicare only, by signing this I certify the plan of care. Please let me know if there are questions or concerns regarding this plan of care. Physician Signature: Date:
--- NOTE | 2023-12-21 14:17 | HP.PTDCSUM ---
Discharge Summary D/C summary: It has been my pleasure to treat DAVE SANTIAGO referred by Noris Beal NP-Sea, with the diagnosis of LUMBAR SPINAL STENOSIS & CHRONIC L1 AND L2 COMP FX'S for a total of 10 visit(s). Discharge Date: 12/21/23 Please see the following information for a summary of their discharge status. Subjective Subjective: PATIENT REPORTS SHE DOESN'T HAVE PAIN WHEN SHE STANDS TO LET THE DOG OUT NOW. SHE DOES GET A TIRED FEELING IN HER BACK IF SHE STANDS TOO LONG THOUGH AND SHE DOES GET AN ACHE IN HER LOW BACK SOMETIMES IF SHE DOES TOO MUCH. SHE STATES THAT NOW SHE CAN WALK TO SHOP AT [employer] FOR AN HOUR AN A HALF WITH A CART AND FOR 3.5 YEARS SHE HAS HAD TO USE A SCOOTER TO SHOP THAT LONG. PATIENT REPORTS SHE IS INDEP WITH HER POOL EX'S NOW BUT THE ONE SHE TRIED YESTERDAY CAUSED SOME PAIN. SHE WAS ABLE TO alleviate IT WITH OTC PAIN MEDICINE. SHE ALSO REPORTS SHE IS GOING TO SEE THE HEART DOCTOR TUESDAY AND WILL NEED TO TAKE A BREAK FROM THERAPY FOR AT LEAST A SHORT WHILE FOR A PROCEDURE. Pain LBP: Pain Intensity (Out of 10): 1 Overall Improvement % Improvement: 90 Objective Objective/Function: THIS PATIENT HAS DONE REALLY WELL WITH AQUATIC THERAPY AND HAS MADE GREAT PROGRESS TOWARD ALL PT GOALS. THIS PT RECOMMENDS PATIENT CONTINUES AQUATIC THERAPY INDEP'LY UNTIL PROCEEDURE AND THEN RESUME AQUATIC THERAPY INDEP'LY SLOWLY WHEN OK'D BY SURGEON. PATIENT AGREEABLE. PATIENT TO FOLLOW UP WITH PHYSICIAN REGUARDING MORE THERAPY FOR HER BACK IN THE FUTURE NEEDED. UPON EXAM TODAY: SHE AMBULATES INDEP'LY INTO PT WITHOUT ANY AD'S WITH GOOD CADANCE HOWEVER SHE STOPS PERIODICALLY DUE TO SOB. SHE TUG TEST BELOW (IMPROVED FROM EVAL). ROM deficit: MILD B LE TIGHTNESS OF HS'S AND CALVES (IMPROVED) Motor deficit: GROSSLY 5/5 WITH MMT'ING TODAY. Dural Signs: NEGATIVE LEO LE'S. Lumbar mvmt loss: flex - MIN ext - MIKAEL R SG - MIKAEL L SG - MIKAEL PATIENT DENIES PAIN WITH LUMBAR ROM TESTING. Core strength: FAIR TUG TIME - 9.97 SEC WITHOUT AD. OTHER: PATIENT CONTINUES TO HAVE DIFFICULTY TRANSFERRING FROM SIT TO STAND WITHOUT UE ASSIST FROM LOW CHAIRS BUT THIS IS MORE UNDERSTANDABLE WHEN HER HEIGHT AND WEIGHT IS TAKEN INTO CONSIDERATION. SHE IS NOW ABLE TO DEMONSTRATE KNOWLEDGE OF BETTER BODY MECHANICS WITH TRANSFERS. Goals Goal 1:: PATIENT WILL REPORT AT LEAST 50% DECREASED BACK PAIN WITH ADL'S. Goal Progress: Goal Met Goal 2:: PATIENT WILL COMPLETE 6 STANDS IN 30 SECS WITHOUT UE'S OR INCREASED PAIN TO DEMONSTRATE IMPROVED FUNCTIONAL STRENGTH Goal Progress: NT Goal 3:: PATIENT WILL COMPLETE TUG IN < 10 SECS TO DEMONSTRATE IMPROVED GAIT STABILITY Goal Progress: Goal Met Goal 4:: PATIENT WILL BE ABLE TO WALK FOR AT LEAST 10 MINUTES WITHOUT AD AND WITHOUT AGGREVATION OF SYMPTOMS IN ORDER TO PERFORM ADL'S AND IADL'S. Goal Progress: Progressing Goal 5:: PATIENT WILL SCORE AT LEAST 5 POINTS BETTER ON BACK OSWESTRY QUESTIONNAIRE Goal Progress: Goal Met Goal 6:: PATIENT WILL BE INDEP WITH A HEP FOR CONTINUED IMPROVEMENT ONCE FORMAL PHYSICAL THERAPY CONCLUDES. Goal Progress: Goal Met Plan Plan: *Give HEP pictures *CORE AQUATIC THERAPY FOR PAIN RELEIF, POSTURE CORRECTION/STRENGTHENING, INSTRUCTION IN APPROPRIATE BODY MECHANICS AND ACTIVITY MODIFICATIONS. DLS STARTING WITH A NEUTRAL SPINE PROGRESSING ROM TOLERATED. LEO LE ROM, STRETCHING AND STRENGTHENING. HEP INSTRUCTION. D/C Information d/c sentence: If there are questions or concerns regarding this patient's physical therapy, please feel free to call me at [phone]. Thank you for the referral of this patient. Sincerely, Ghazal Call, PT, Cert MDT Balance/Gait/Functional tests Balance/Special Test Scores Oswestry Low Back Score: 8 Improvement % Improvement: 90
== END 2023-12-21 19:00 | disposition home or self-care (01) ==
LOC: PT 10:00
PROVIDERS: PCP Family Medicine; Referring Provider Nurse Practitioner; Visit Provider Nurse Practitioner
DX: M48.061 Spinal stenosis, lumbar region without neurogenic claudication (principal)
CPT/HCPCS: 97113; 97162; 97530

== ENCOUNTER → 2024-02-15 | Outpatient (CLI) | payer MEDICARE, OTHER, SELFPAY ==
--- NOTE | 2024-02-15 13:14 | BI_ITS ---
MAMMOGRAPHY - BILATERAL SCREENING REASON FOR EXAM: Female, 68 years old. Routine annual screening examination. PERTINENT HISTORY: Grandmother with breast cancer. History of prior left needle breast biopsy. TECHNIQUE: Digital bilateral breast annika (3D mammographic acquisition) in the CC and MLO projections. 2-D mediolateral oblique (MLO) and craniocaudad (CC) views of both breasts were obtained. CAD: Full Field Digital Mammography with Computer Added Detection was performed. COMPARISON: Comparison is made with prior study dated January 05, 2023 and December 18, 2001. FINDINGS: Breast Composition: The breasts are heterogeneously dense, which may obscure small masses. There are no dominant masses or suspicious calcifications. No other significant abnormalities are identified. There has been no significant change since the prior study. BI/SCRN MAMM (CAD)W/ANNIKA BILAT IMPRESSION: Stable bilateral screening mammogram. Yearly follow-up mammogram recommended. (A) ASSESSMENT CATEGORY: BIRADS Category 1: Negative. A letter regarding these results will be sent to the patient by the facility within 30 days. Approximately 10% of breast cancers are not detected by mammography. A normal mammogram should not delay biopsy of a clinically suspicious abnormality. [id number] Electronically Signed: Woody Davenport MD at 14:02 EDT ,
== END | disposition home or self-care (01) ==
LOC: OPBI 13:12
PROVIDERS: PCP Family Medicine; Referring Provider Family Medicine; Visit Provider Family Medicine
DX: Z12.31 Encounter for screening mammogram for malignant neoplasm of breast (principal); Z80.3 Family history of malignant neoplasm of breast
CPT/HCPCS: 77063; 77067

== ENCOUNTER → 2024-04-04 | Outpatient (CLI) | payer MEDICARE, OTHER, SELFPAY ==
--- NOTE | 2024-04-04 11:30 | RAD_ITS ---
STUDY: X-RAY CHEST REASON FOR EXAM: Female, 69 years old. WENDY/HYPOXEMIA TECHNIQUE: PA and lateral views of the chest. COMPARISON: None. FINDINGS: The lungs are clear and expanded. There is no demonstrated pleural abnormality. Normal size heart. Normal mediastinum and ranjan. Normal visualized pulmonary arteries. There is atherosclerotic calcification of the aortic arch with tortuosity. There are diffuse degenerative changes of the visualized thoracic spine. Normal visualized ribs, clavicles, and shoulders. There is no demonstrated abnormality of the visualized soft tissue structures of the upper abdomen. RAD/Chest PA and Lateral IMPRESSION: Degenerative changes, as described above. No demonstrated acute cardiopulmonary process. Electronically Signed: Ben Vidal MD at 16:31 EDT ,
[2024-04-04 11:53] LABS: Anion Gap 4 (5-15); BUN 24 mg/dL (7-18); Chloride 106 mmol/L (98-107); Creatinine, Serum 0.84 mg/dL (0.55-1.02); EST Glomerular Filtration Rate 71 mL/min (>60); Est Glom Filt Rate - Afr Amer 86 mL/min (>60); Sodium Level 139 mmol/L (136-145)
== END | disposition home or self-care (01) ==
LOC: RAD 11:10
PROVIDERS: PCP Family Medicine; Referring Provider Internal Medicine Pulmonary Disease; Visit Provider Internal Medicine Pulmonary Disease
DX: G47.33 Obstructive sleep apnea (adult) (pediatric) (principal); R09.02 Hypoxemia
CPT/HCPCS: 36415; 71046; 80051; 82565; 84520

== ENCOUNTER 2024-07-10 14:42 | Outpatient (CLI) | payer MEDICARE, OTHER, SELFPAY ==
[2024-07-10 16:08] LABS: BNP,B-Type NATRIURETIC PEPTIDE 107.1 pg/mL (0-100)
[2024-07-10 16:18] LABS: Anion Gap 5 (5-15); BUN 24 mg/dL (7-18); Chloride 102 mmol/L (98-107); Creatinine, Serum 1.01 mg/dL (0.55-1.02); EST Glomerular Filtration Rate 58 mL/min (>60); Est Glom Filt Rate - Afr Amer 70 mL/min (>60); Potassium 3.6 mmol/L (3.5-5.1); Sodium Level 140 mmol/L (136-145)
== END 2024-07-10 23:59 | disposition home or self-care (01) ==
LOC: LAB 14:46
PROVIDERS: PCP Family Medicine; Referring Provider Internal Medicine Pulmonary Disease; Visit Provider Internal Medicine Pulmonary Disease
DX: R09.02 Hypoxemia (principal)
CPT/HCPCS: 36415; 80051; 82565; 83880; 84520

== ENCOUNTER → 2024-10-22 | Outpatient (CLI) | payer MEDICARE, OTHER, SELFPAY | END | disposition home or self-care (01) | PROVIDERS: PCP Family Medicine | DX: R00.2 Palpitations (principal); I49.1 Atrial premature depolarization; I49.3 Ventricular premature depolarization; I44.7 Left bundle-branch block, unspecified; Z98.890 Other specified postprocedural states; Z86.79 Personal history of other diseases of the circulatory system | CPT/HCPCS: 93225; 93226 ==

== ENCOUNTER → 2024-10-25 | Outpatient (CLI) | payer MEDICARE, OTHER, SELFPAY ==
--- NOTE | 2024-10-25 08:33 | RAD_ITS ---
PROCEDURE: L/S SPINE W BEND MIN 6 VW 10/25/2024 REASON FOR EXAM: OTHER INTERVERTEBRAL DISC DEGENERATION, LUMBOSACRAL REGION WITH L TECHNIQUE: 6 views; AP, bilateral oblique, lateral and flexion-extension COMPARISON: None available FINDINGS: 5 [id number] lumbar vertebral body types. No definite spondylolysis identified although study is limited due to penetration. [id number] superior endplate compression deformity of L1 with some sclerotic change suggested may be nonacute, clinically correlate L1-2 moderate to severe appearing disc space narrowing considering the L2 superior endplate concave deformity. Moderate superior endplate anterior wedge compression deformity L2. L2-3 moderate disc space narrowing L3-4 [id number]-sw-[id number] disc space narrowing with degenerative endplate changes L5-S1 spondylosis/discogenic change There is not much degree unchanged in positioning with extension or flexion. No malalignment. No instability identified. RAD/L/S Spine w Bend Min 6 Vw IMPRESSION: L1 and L2 compression deformities as above. Multilevel spondylosis/discogenic change as above. Reading Location: [id number]
--- NOTE | 2024-10-25 08:33 | RAD_ITS ---
PROCEDURE: THORACIC SPINE MIN 4 VIEWS 10/25/2024 REASON FOR EXAM: OTHER INTERVERTEBRAL DISC DEGENERATION, LUMBOSACRAL REGION WITH L TECHNIQUE: Four views, AP, bilateral oblique and 4 lateral views, 7 total images COMPARISON: None available FINDINGS: No fracture or malalignment. The disc spaces appear within limits. Please refer to lumbar spine for lumbar spine description. RAD/Thoracic Spine Min 4 Views IMPRESSION: No fracture or malalignment. Reading Location: [id number]
[2024-10-25 10:02] LABS: Absolute Lymphocyte Count 1.16 X10^3/uL (0.83-4.51); Absolute Neutrophil Count 4.5 X10^3/uL (2.0-7.7); Basophil# 0.05 X10^3/uL; Basophil% 0.8 % (0-1); Eosinophil# 0.19 X10^3/uL; Eosinophils% 2.9 % (0-5); Hematocrit 37.1 % (37-47); Hemoglobin 11.5 g/dL (12.0-15.0); Lymphocyte # 1.16 X10^3/ul (0.83-4.51); Lymphocyte % 17.9 % (19-41); Mean Corpuscular Hgb 27.3 pg (27.0-32.0); Mean Corpuscular Volume 88.1 fL (81-99); Mean Platelet Vol. 9.1 fl (6.2-12.0); Monocyte# 0.49 X10^3/uL; Monocyte% 7.6 % (0-10); NRBC Flagged by Analyzer 0 % (0-5); Neutrophil # 4.54 X10^3/uL (2.7-7.7); Platelet Count 268 K/mm3 (150-450); RBC Distribution Width CV 13.6 % (11.6-14.6); RBC Distribution Width SD 43.4 fl (35.1-43.9); Red Blood Count 4.21 M/mm3 (4.2-5.4); White Blood Count 6.5 K/mm3 (4.4-11.0)
[2024-10-25 10:50] LABS: ALB/GLOB Ratio 1.2 RATIO (0.9-2.4); AST(SGOT) 25 U/L (<=31); Alanine Aminotransfer ALT/SGPT 19 U/L (<=34); Albumin, Serum 3.9 g/dL (3.4-4.8); Alkaline Phosphatase 138 U/L (35-104); Anion Gap 10 (5-15); BUN 27 mg/dL (4-19); BUN/Creat Ratio 26.2 RATIO (10-20); Calcium,Total 9.3 mg/dL (7.6-11.0); Carbon Dioxide 26.9 mmol/L (21.0-32.0); Chloride 103 mmol/L (98-108); Cholesterol 153 mg/dL (<=200); Creatinine, Serum 1.04 mg/dL (0.70-1.20); EST Glomerular Filtration Rate 58 (>60); Globulin 3.4 g/dL (2.2-4.2); Glucose 103 mg/dL (70-99); High Density Lipoprotein 54 mg/dL; Low Density Lipoprotein Calc. 85 mg/dL; Potassium 4.7 mmol/L (3.3-5.1); Protein, Total 7.3 g/dL (5.9-8.4); Sodium Level 140 mmol/L (133-145); Total Bilirubin 0.69 mg/dL (0.00-1.30); Triglycerides 72 mg/dL; Very Low Density Lipoprotein 14 mg/dL (5-40); cholesterol:hdl ratio screen 2.85
== END | disposition home or self-care (01) ==
LOC: RAD 08:32
PROVIDERS: PCP Family Medicine; Referring Provider Anesthesiology Pain Medicine; Visit Provider Anesthesiology Pain Medicine
DX: M51.370 Other intervertebral disc degeneration, lumbosacral region with discogenic back pain only (principal); M51.34 Other intervertebral disc degeneration, thoracic region; I10 Essential (primary) hypertension; E78.5 Hyperlipidemia, unspecified
CPT/HCPCS: 36415; 72074; 72114; 80053; 80061; 85025

== ENCOUNTER → 2025-01-01 | Outpatient (CLI) | payer MEDICARE, OTHER, SELFPAY ==
--- NOTE | 2025-01-01 14:32 | ECHOCS_ITS ---
Reason For Study Reason For Study: VT Ablation Procedure This was a 2D Doppler, Color Flow transthoracic echocardiogram. The study was technically difficult. Contrast injection was performed. Exam performed in department. Left Ventricle Normal LV size. Mild eccentric left ventricular hypertrophy. The left ventricular ejection fraction is 45 %. No regional wall motion abnormalities noted. Right Ventricle Normal RV size. Normal systolic function. Atria The left atrium is mildly enlarged. Normal right atrium. Mitral Valve Normal mitral valve. Tricuspid Valve Normal tricuspid valve. Mild tricuspid valve insufficiency. Pulmonary artery systolic pressure is 46 mmHg. Aortic Valve The aortic valve is not well visualized. Great Vessels Normal aortic root. The pulmonary artery is normal size. Inferior vena cava collapse with respiration. Pericardium/Pleural No pericardial effusion. Medication 22 gauge I.V. with prn adaptor inserted into right arm. Diluted definity 2ml given slow IV push to enhance endocardial definition. MMode/2D Measurements & Calculations LVIDd: 5.7 cm IVSd: 1.5 cm Ao root diam: 3.5 cm LVIDs: 4.6 cm LVPWd: 0.97 cm RVDd: 4.0 cm FS: 18.9 % LAV(MOD-bp): 85.4 ml LVAd ap4: 46.8 cm2 SV(MOD-sp4): 73.8 ml LAV(MOD-bp) Indexed: 34.9 ml/m2 LVLd ap4: 9.3 cm SI(MOD-sp4): 30.2 ml/m2 LAV(MOD-sp2): 70.4 ml EDV(MOD-sp4): 184.5 ml LAV(MOD-sp4): 87.6 ml EDV(sp4-el): 199.9 ml LVAs ap4: 33.4 cm2 LVLs ap4: 8.0 cm ESV(MOD-sp4): 110.7 ml ESV(sp4-el): 118.6 ml EF(MOD-sp4): 40.0 % EF(sp4-el): 40.6 % SV(sp4-el): 81.2 ml LA A4 area: 25.9 cm2 LA dimension(2D): 4.7 cm RA A4 area: 17.7 cm2 TAPSE: 2.5 cm Time Measurements MV dec time: 0.21 sec Doppler Measurements & Calculations MV E max xander: 76.8 cm/sec Lat Peak E' Xander: 9.7 cm/sec Med Peak E' Xander: 7.5 cm/sec MV A max xander: 101.8 cm/sec E/E' lat: 7.9 E/E' med: 10.2 MV E/A: 0.75 MV V2 max: 118.2 cm/sec MV P1/2t max xander: 100.1 cm/sec Ao V2 max: 151.5 cm/sec MV max P.6 mmHg MV P1/2t: 84.1 msec Ao max P.3 mmHg MV V2 mean: 67.8 cm/sec Ao V2 mean: 108.5 cm/sec MV mean P.2 mmHg MV dec slope: 348.4 cm/sec2 Ao mean P.4 mmHg MV V2 VTI: 31.3 cm MVA(P1/2t): 2.6 cm2 Ao V2 VTI: 32.7 cm AV (velocity ratio): 0.77 LV V1 max: 123.8 cm/sec PA V2 max: 131.1 cm/sec TR max xander: 325.6 cm/sec LV V1 max P.1 mmHg PA V2 mean: 74.4 cm/sec TR max P.4 mmHg LV V1 mean P.6 mmHg LV V1 mean: 87.8 cm/sec LV V1 VTI: 25.3 cm ECHO/Echo Complete W/ Contrast Interpretation Summary The left ventricular ejection fraction is 45 %. Normal LV size. The left atrium is mildly enlarged. Pulmonary artery systolic pressure is 46 mmHg. Contrast injection was performed. Ordering Physician: Marcos Wesley Referring Physician: Marcos Wesley Performed By: Rafa Dooley RCS
== END | disposition home or self-care (01) ==
LOC: CVS 14:31
PROVIDERS: PCP Family Medicine; Referring Provider Internal Medicine Cardiovascular Disease; Visit Provider Internal Medicine Cardiovascular Disease
DX: I42.8 Other cardiomyopathies (principal)
CPT/HCPCS: 93306; Q9957; A4216; C8929

== ENCOUNTER → 2025-02-21 | Outpatient (CLI) | payer MEDICARE, OTHER, SELFPAY ==
--- NOTE | 2025-02-21 08:05 | BI_ITS ---
EXAM: SCRN MAMM (CAD)W/ANNIKA BILAT DATE: 02/21/2025 CLINICAL HISTORY: F, Age 69 y/o , SCREENING Grandmother with breast cancer. Prior left needle breast biopsy. TECHNIQUE: Procedure Code: [id number] Modality: MG Procedure: SCRN MAMM (CAD)W/ANNIKA BILAT COMPARISON: Prior exam(s) dated February 15, 2024.. FINDINGS: TISSUE DENSITY: The breasts are heterogeneously dense, which may obscure small masses. Bilateral Breast Mammographic Findings: No significant masses, calcifications or other abnormalities are identified. Stable calcified nodule in the deep upper medial aspect of the left breast suggestive of calcified fibroadenoma. No suspicious masses, areas of developing architectural distortion, or suspicious calcifications. There has been no significant interval change. BI/SCRN MAMM (CAD)W/ANNIKA BILAT IMPRESSION: Stable bilateral screening mammogram. OVERALL FINAL ASSESSMENT BI-RADS 2: BENIGN RECOMMENDATION: Routine annual follow-up in 1 Year A letter with findings and recommendations will be mailed to the patient. Reading Location: [id number]
== END | disposition home or self-care (01) ==
PROVIDERS: PCP Family Medicine; Referring Provider Internal Medicine Cardiovascular Disease; Visit Provider Internal Medicine Cardiovascular Disease
DX: Z12.31 Encounter for screening mammogram for malignant neoplasm of breast (principal); Z80.3 Family history of malignant neoplasm of breast
CPT/HCPCS: 77063; 77067; 93225; 93226

== ENCOUNTER → 2025-04-01 | Outpatient (CLI) | payer MEDICARE, OTHER, SELFPAY ==
[2025-04-01 10:16] LABS: AST(SGOT) 23 U/L (<=31); Alanine Aminotransfer ALT/SGPT 14 U/L (<=34); Albumin, Serum 4.0 g/dL (3.4-4.8); Alkaline Phosphatase 125 U/L (35-104); Anion Gap 9 (5-15); BUN 16 mg/dL (4-19); BUN/Creat Ratio 19.1 RATIO (10-20); Calcium,Total 9.7 mg/dL (7.6-11.0); Carbon Dioxide 27.9 mmol/L (21.0-32.0); Chloride 101 mmol/L (98-108); Globulin 3.2 g/dL (2.2-4.2); Glucose 123 mg/dL (70-99); Magnesium 2.1 mg/dL (1.5-2.2); Potassium 4.5 mmol/L (3.3-5.1)
== END | disposition home or self-care (01) ==
LOC: LAB 09:06
PROVIDERS: PCP Family Medicine; Referring Provider Family Medicine; Visit Provider Family Medicine
DX: N18.31 Chronic kidney disease, stage 3a (principal)
CPT/HCPCS: 36415; 80053; 83735

== ENCOUNTER → 2025-05-30 | Outpatient (CLI) | payer MEDICARE, OTHER, SELFPAY ==
--- NOTE | 2025-05-30 09:53 | ECHOD_ITS ---
Reason For Study Reason For Study: DCMP Procedure This was a 2D Doppler, Color Flow transthoracic echocardiogram. Exam performed in department. Left Ventricle Moderately dilated left ventricle. Moderate assymetric septal hypertrophy. The left ventricular ejection fraction is 45 %. Septal motion consistent with bundle branch block. Diastolic function is indeterminate. There is mild global hypokinesis of the left ventricle. Right Ventricle Normal RV size. Normal systolic function. Atria Normal left atrium. Normal right atrium. Mitral Valve There is mild mitral annular calcification. Mild (1+) mitral valve insufficiency. Tricuspid Valve Normal tricuspid valve. Mild (1+) tricuspid valve insufficiency. Pulmonary artery systolic pressure is 42 mmHg. Aortic Valve Trisinus/trileaflet aortic valve. Mild focal aortic valve calcification. Aortic sclerosis, no stenosis. Pulmonic Valve Normal pulmonic valve. Great Vessels Normal aortic root. The pulmonary artery is normal size. Inferior vena cava collapse with respiration. Pericardium/Pleural No pericardial effusion. MMode/2D Measurements & Calculations LVIDd: 5.9 cm IVSd: 1.4 cm Ao root diam: 3.9 cm LVIDs: 5.3 cm LVPWd: 0.97 cm RVDd: 3.3 cm FS: 11.4 % LAV(MOD-bp): 62.8 ml LVAd ap4: 38.2 cm2 SV(MOD-sp4): 74.2 ml LAV(MOD-bp) Indexed: 25.9 ml/m2 LVLd ap4: 8.9 cm SI(MOD-sp4): 30.6 ml/m2 LAV(MOD-sp2): 51.9 ml EDV(MOD-sp4): 137.1 ml LAV(MOD-sp4): 73.7 ml EDV(sp4-el): 140.2 ml LVAs ap4: 23.6 cm2 LVLs ap4: 7.3 cm ESV(MOD-sp4): 62.9 ml ESV(sp4-el): 65.3 ml EF(MOD-sp4): 54.1 % EF(sp4-el): 53.4 % SV(sp4-el): 74.9 ml LA A4 area: 23.3 cm2 LA dimension(2D): 5.0 cm RA A4 area: 12.8 cm2 Time Measurements MV dec time: 0.19 sec Doppler Measurements & Calculations MV E max xander: 77.5 cm/sec Lat Peak E' Xander: 11.2 cm/sec Med Peak E' Xander: 6.2 cm/sec MV A max xander: 86.7 cm/sec E/E' lat: 6.9 E/E' med: 12.5 MV E/A: 0.89 MV V2 max: 84.3 cm/sec Ao V2 max: 161.8 cm/sec MV max P.8 mmHg MV dec slope: 406.1 cm/sec2 Ao max P.5 mmHg MV V2 mean: 57.2 cm/sec Ao V2 mean: 112.8 cm/sec MV mean P.4 mmHg Ao mean P.8 mmHg MV V2 VTI: 29.1 cm Ao V2 VTI: 40.8 cm AV (velocity ratio): 0.82 LV V1 max: 134.3 cm/sec TR max xander: 313.2 cm/sec LV V1 max P.2 mmHg TR max P.2 mmHg LV V1 mean P.8 mmHg LV V1 mean: 107.0 cm/sec LV V1 VTI: 33.4 cm ECHO/Echo Complete Interpretation Summary The left ventricular ejection fraction is 45 %. Moderately dilated left ventricle. There is mild global hypokinesis of the left ventricle. Mild (1+) mitral valve insufficiency. Mild (1+) tricuspid valve insufficiency. Septal motion consistent with bundle branch block. Ordering Physician: Marcos Wesley MD Referring Physician: ALYSSA RAMEY Performed By: Yanely Lau RCS
== END | disposition home or self-care (01) ==
LOC: CVS 09:51
PROVIDERS: PCP Family Medicine; Referring Provider Internal Medicine Cardiovascular Disease; Visit Provider Internal Medicine Cardiovascular Disease
DX: I49.3 Ventricular premature depolarization (principal)
CPT/HCPCS: 93306